=== PATIENT | female | born 1945 | race African-American/Black ===

== ENCOUNTER 2016-04-01 14:23 | Emergency (ER) | payer MEDICARE, MEDICAID ==
[~2016-04-01] VITALS: Ht 165.1 cm; Wt 63.5 kg
[~2016-04-01 14:23] MED LIST: ACETAMINOPHEN120 MG PO; AMLODIPINE BESY10 MG ORAL; CARVEDILOL3.125 MG ORAL; COZAAR50 MG ORAL; HYDRALAZINE HCL50 MG ORAL; KEPPRA500 M3 ORAL; LYRICA75 M1 ORAL; NORVASC5 MG ORAL; PHENYTOIN100 MG/4 M ORAL; UNOBMED
[2016-04-01 14:30] VITALS: BP 146/76
--- NOTE | 2016-04-01 14:50 | Emergency Room Report ---
History of Present Illness General Chief Complaint: Multiple Trauma/Fall Source: Patient Present Illness HPI Patient reports that she was outside of her nursing facility She states that she smokes And had gone outside with her walker And essentially slipped with a wet floor Denies any headache or visual changes denies any loss of consciousness Denies any chest pain or shortness of breath She reports that she had some increased low back pain However reports that her physician has told her that she has slipped discs The pain appears to be fairly similar to previous Denies any pelvic pain Denies any fevers or chills denies any focal weakness Allergies: Coded Allergies: NO KNOWN DRUG ALLERGIES (Unverified Allergy, Unknown, 02/04/14) Patient History Past Medical History: see triage record Pertinent Family History: none Reviewed Nursing Documentation: PMH: Agreed, PSxH: Agreed Nursing Documentation-PMH Hx Cardiac Problems: Yes - Cardiomyopathy Hx Hypertension: Yes Hx Cancer: No Hx Gastrointestinal Problems: No Hx Neurological Problems: Yes Hx Seizures: Yes Review of Systems All Other Systems: negative except mentioned in HPI Physical Exam Vital Signs Date Time Temp Pulse Resp B/P Pulse Ox O2 Delivery O2 Flow Rate FiO2 04/01/16 14:17 98.1 54 16 146/76 98 Room Air Sp02 EP Interpretation: reviewed, normal General Appearance: well appearing, no apparent distress Head: normocephalic, atraumatic Eyes: bilateral eye EOMI, bilateral eye PERRL ENT: hearing grossly normal, normal pharynx, TMs + canals normal, uvula midline Neck: full range of motion, supple, no meningismus, no bony tend Respiratory: lungs clear, normal breath sounds, no rhonchi, no respiratory distress, no retraction, no accessory muscle use Cardiovascular #1: normal peripheral pulses, regular rate, rhythm, no edema, no gallop, no JVD, no murmur Gastrointestinal: normal bowel sounds, non tender, soft, no mass, no organomegaly, non-distended, no guarding, no hernia, no pulsatile mass, no rebound Genitourinary: no CVA tenderness Musculoskeletal: other Neurologic: oriented x3, responsive, sensory intact Psychiatric: mood/affect normal Skin: normal color, no rash, warm/dry, palpation normal Lymphatic: normal inspection, no adenopathy Medical Decision Making Diagnostic Impression: Primary Impression: Contusion of hip Additional Impression: Back contusion ER Course Given the patient's presentation differentials were considered However the patient provides a very clear specific mechanical fall, slipping with her cane on the wet ground Imaging of the lower back was obtained there is no signs of any acute pathology patient remained hemodynamically stable and appropriate for close half-way followup CT/MRI/US Diagnostic Results CT/MRI/US Diagnostic Results : Impression CT L-spineImpression: No acute fracture identified. Moderate spondylosis with right convex scoliosis demonstrated. Osteopenia Extensive atherosclerotic vascular disease Possibility of nonobstructive nephrolithiasis not excluded. Extensive calcific granulomata within the spleen Last Vital Signs Date Time Temp Pulse Resp B/P Pulse Ox O2 Delivery O2 Flow Rate FiO2 04/01/16 14:30 98.1 16 146/76 98 Room Air 04/01/16 14:17 54 Status: improved Disposition: XFER SNF Condition: Improved Additional Instructions: Patient is provided with the discharge instructions notified to follow up with primary doctor in the next 2-3 days otherwise return to the er with any worsening symptoms. Please note that this report is being documented using [employer] technology. This can lead to erroneous entry secondary to incorrect interpretation by the dictating instrument. BRITTNEY PUCKETT D.O. Apr 01, 2016 14:50
--- NOTE | 2016-04-01 16:04 | Diagnostic Imaging Report ---
Indication: Back pain Technique: Continuous helical transaxial imaging of the lumbar spine was obtained from the lung bases to the pubic symphysis. No IV contrast was administered. Coronal 2-D reformats were also obtained. Study obtained in a Siemens sensation [address] Total Dose length Product (DLP): [address] Dose Index Volume (CTDIvol): 14 mGy Comparison: None Findings: There is no evidence of an acute fracture or malalignment. Vacuum phenomena, endplate and facet hypertrophy and spur formation noted at multiple levels. There is a scoliosis convex to the right. Generalized osteopenia noted. Extensive calcification of aorta demonstrated. Calcifications noted within the spleen. There are calcifications within both kidneys, only partially visualized on this examination. Some of these are undoubtedly vascular in nature. The possibility of nonobstructive stones are not excluded. There is no hydronephrosis demonstrated. Impression: No acute fracture identified. Moderate spondylosis with right convex scoliosis demonstrated. Osteopenia Extensive atherosclerotic vascular disease Possibility of nonobstructive nephrolithiasis not excluded. Extensive calcific granulomata within the spleen The CT scanner at [facility] is accredited by the [employer] and the scans are performed using protocols designed to limit radiation exposure to as low as reasonably achievable to attain images of sufficient resolution adequate for diagnostic evaluation.
[2016-04-01 16:29] VITALS: BP 168/82
--- NOTE | 2016-04-04 15:28 | Cardiology Report ---
APPROVED REPORT EKG Measurement Heart [id number] Sinus bradycardia Low voltage QRS T wave abnormality, consider lateral ischemia Abnormal ECG
== END 2016-04-01 16:51 ==
LOC: EDBD 14:23 → EMR 14:53
DX: S30.0XXA Contusion of lower back and pelvis, initial encounter (principal); S70.00XA Contusion of unspecified hip, initial encounter; W01.0XXA Fall on same level from slipping, tripping and stumbling without subsequent striking against object, initial encounter; Y92.129 Unspecified place in nursing home as the place of occurrence of the external cause; I10 Essential (primary) hypertension; I42.9 Cardiomyopathy, unspecified; M85.88 Other specified disorders of bone density and structure, other site; M47.896 Other spondylosis, lumbar region; M41.86 Other forms of scoliosis, lumbar region
CPT/HCPCS: 72131; 93005; 99284

== ENCOUNTER 2016-09-12 07:54 | Inpatient (IN) | payer MEDICARE, MEDICAID ==
[~2016-09-12] VITALS: Ht 160 cm; Wt 67.6 kg
[2016-09-12 08:31] VITALS: BP 205/93
[2016-09-12 08:55] LABS: BASOPHILS % (AUTO) 1.8 % (0.0-2.0); EOSINOPHILS % (AUTO) 0.5 % (0.0-3.0); LYMPHOCYTES % (AUTO) 40.5 % (20.0-45.0); MEAN CORPUSCULAR HEMOGLOBIN 30.2 PG (27.0-31.0); MEAN CORPUSCULAR VOLUME 94 FL (80-99); MEAN PLATELET VOLUME 14.3 FL (6.5-10.1); MONOCYTES % (AUTO) 10.2 % (1.0-10.0); PLATELET COUNT 148 K/UL (150-450); RED BLOOD COUNT 4.58 M/UL (4.20-5.40); WHITE BLOOD COUNT 10.5 K/UL (4.8-10.8)
[2016-09-12] MEDS ORDERED: REMERON15 MG ORAL (09:02)
[2016-09-12] MEDS ORDERED: LEXAPRO10 MG ORAL (09:02)
[2016-09-12] MEDS ORDERED: LORazepam Inj 2mg/ml 1ml ONE (10:13)
[2016-09-12] MEDS ORDERED: LORazepam Inj 2mg/ml 1ml IV ONE (10:15)
[2016-09-12 10:26] LABS: ACETAMINOPHEN < 10 ug/mL (10-30); ALANINE AMINOTRANSFERASE 68 U/L (3-33); ALCOHOL < 10 mg/dL; ANION GAP 14 (5-15); ASPARTATE AMINO TRANSFERASE 95 U/L (5-40); CALCIUM 10.1 mg/dL (8.6-10.2); CARBON DIOXIDE 22 mEQ/L (20-30); CHLORIDE 95 mEQ/L (98-107); CREATININE 1.1 mg/dL (0.5-0.9); GLOMERULAR FILTRATION RATE 59.5 mL/min (>60); HEMOLYSIS 1; SODIUM 131 mEQ/L (135-145); TOTAL PROTEIN 8.7 g/dL (6.6-8.7); TROPONIN I < 0.30 ng/mL (<=0.30)
--- NOTE | 2016-09-12 10:27 | Emergency Room Report ---
History of Present Illness General Chief Complaint: Seizure Source: Patient, EMS Present Illness HPI 71-year-old female presents to ED for evaluation. Per EMS patient resides in a rehabilitation care facility. Patient had a seizure today approximately 30 minutes prior to arrival. Upon arrival patient is post ictal. Does not remember what happened. Patient takes Dilantin for seizures. Possible alcohol use as per EMS. Patient can come and go from the facility at her own choosing. Denies chest pain or shortness of breath. No other aggravating or relieving factors. Denies any other associated symptoms Allergies: Coded Allergies: NO KNOWN DRUG ALLERGIES (Unverified Allergy, Unknown, 02/04/14) Patient History Past Medical History: HTN, seizures Past Surgical History: none Pertinent Family History: none Social History: Denies: alcohol use, drug use, smoking Now: No Immunizations: UTD Reviewed Nursing Documentation: PMH: Agreed, PSxH: Agreed Nursing Documentation-PMH Hx Cardiac Problems: Yes - Cardiomyopathy Hx Hypertension: Yes Hx Cancer: No Hx Gastrointestinal Problems: No Hx Neurological Problems: Yes Hx Seizures: Yes Review of Systems All Other Systems: negative except mentioned in HPI Physical Exam Vital Signs Date Time Temp Pulse Resp B/P Pulse Ox O2 Delivery O2 Flow Rate FiO2 09/12/16 07:57 98.4 120 20 160/74 97 09/12/16 08:31 Nasal Cannula 4.0 Sp02 EP Interpretation: reviewed, normal General Appearance: no apparent distress, alert, GCS 15, non-toxic Head: normocephalic, atraumatic Eyes: bilateral eye PERRL, bilateral eye normal inspection ENT: hearing grossly normal, normal pharynx, no angioedema, normal voice Neck: full range of motion, supple/symm/no masses Respiratory: chest non-tender, lungs clear, normal breath sounds, speaking full sentences Cardiovascular #1: regular rate, rhythm, no edema Cardiovascular #2: 2+ carotid (R), 2+ carotid (L), 2+ radial (R), 2+ radial (L) , 2+ dorsalis pedis (R), 2+ dorsalis pedis (L) Gastrointestinal: normal bowel sounds, non tender, soft, non-distended, no guarding, no rebound Rectal: deferred Genitourinary: normal inspection, no CVA tenderness Musculoskeletal: back normal, gait/station normal, normal range of motion, non- tender Neurologic: alert, oriented x3, responsive, motor strength/tone normal, sensory intact, speech normal Psychiatric: judgement/insight normal, memory normal, mood/affect normal, no suicidal/homicidal ideation Reflexes: 3+ bicep (R), 3+ bicep (L), 3+ tricep (R), 3+ tricep (L), 3+ knee (R) , 3+ knee (L) Skin: normal color, no rash, warm/dry, well hydrated Lymphatic: no adenopathy Medical Decision Making Diagnostic Impression: Primary Impression: Seizure disorder Additional Impression: Substance abuse ER Course Hospital Course 71-year-old F presents to ED status post seizure. Differential diagnosis includes- breakthrough seizure, alcohol abuse, noncompliance with medication Clinical course Patient placed on stretcher. Initial history and physical I ordered labs, IV fluids, CT brain Labs-electrolytes okay, leukocytosis noted, hemoglobin/hematocrit stable. dilantin level low, Utox + amphetamines, cocaine EKG - sinus tachycardia CT Brain ok Given loading dose of Dilantin. Given that patient is still altered I believe she should be admitted. Case discussed with Dr. Winchester and he agreed to accept the patient to his service for further care and support. i. I feel this is a highly complex case requiring extensive working including EKG/Rhythm strip, Xray/CT/US, Blood/urine lab work, repeat exams while in ED, and administration of strong opiates/narcotics for pain control, admission to hospital or close patient follow up. Diagnosis - seizure, substance abuse admitted to telemetry in serious condition Labs Test 09/12/16 08:20 09/12/16 09:50 White Blood Count 10.5 K/UL (4.8-10.8) Red Blood Count 4.58 M/UL (4.20-5.40) Hemoglobin 13.8 G/DL (12.0-16.0) Hematocrit 43.1 % (37.0-47.0) Mean Corpuscular Volume 94 FL (80-99) Mean Corpuscular Hemoglobin 30.2 PG (27.0-31.0) Mean Corpuscular Hemoglobin Concent 32.0 G/DL (32.0-36.0) Red Cell Distribution Width 12.0 % (11.6-14.8) Platelet Count 148 K/UL (150-450) Mean Platelet Volume 14.3 FL (6.5-10.1) Neutrophils (%) (Auto) 47.0 % (45.0-75.0) Lymphocytes (%) (Auto) 40.5 % (20.0-45.0) Monocytes (%) (Auto) 10.2 % (1.0-10.0) Eosinophils (%) (Auto) 0.5 % (0.0-3.0) Basophils (%) (Auto) 1.8 % (0.0-2.0) EKG Diagnostic Results Rate: tachycardiac Rhythm: NSR ST Segments: no acute changes ASA given to the pt in ED: No Rhythm Strip Diag. Results EP Interpretation: yes Rhythm: NSR, no PVC's, no ectopy CT/MRI/US Diagnostic Results CT/MRI/US Diagnostic Results : Imaging Test Ordered: CT Head Impression no acute process. old infarcts noted Last Vital Signs Date Time Temp Pulse Resp B/P Pulse Ox O2 Delivery O2 Flow Rate FiO2 09/12/16 08:31 98.4 111 20 205/93 97 Nasal Cannula 4.0 Status: improved Disposition: ADMITTED INPATIENT Condition: Serious Referrals: NON PHYSICIAN (PCP) NEIDA AREVALO M.D. Sep 12, 2016 10:27
[2016-09-12 10:36] LABS: CKMB 8.7 ng/mL (< 3.8)
[2016-09-12] MEDS ORDERED: Phenytoin 250mg/5ml vial ONE (10:38)
[2016-09-12] MEDS ORDERED: Phenytoin 1,000 MG in NS 275 ML IV ONE (10:45)
[2016-09-12 10:50] VITALS: BP 206/117
--- NOTE | 2016-09-12 10:52 | Diagnostic Imaging Report ---
Indication: Seizure Technique: Contiguous 5 mm thick transaxial imaging of the head obtained in a Siemens Sensation [address] scanner. Soft tissue and bone windows generated. Total Dose length Product (DLP): [address] Dose Index Volume (CTDIvol): 70.38 mGy Comparison: 02/03/16 Findings: There is encephalomalacia in the right posterior parietal region unchanged from the last exam and consistent with an old infarct. There is moderate prominence of the ventricles, basal cisterns, and cerebral sulci consistent with atrophy. Moderate, nonspecific, white matter hypoattenuation is noted throughout the brain consistent with chronic small vessel disease. Cystic foci noted within basal ganglia consistent with old lacunar infarcts. There is no midline shift, edema, acute hemorrhage, mass effect, or abnormal extra-axial fluid collections. There is indentation is noted involving the medial orbital pastor bilaterally consistent with old fractures. The paranasal sinuses and mastoids appear clear bilaterally. Impression: No acute intracranial bleed, mass effect or edema. 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 Moderate atrophy of the brain. Evidence of chronic small vessel disease involving white matter tracts including old lacunes. Old fractures involving the medial orbital wall bilaterally. No interval change The CT scanner at [facility] is accredited by the [employer] and the scans are performed using dose optimization techniques as appropriate to a performed exam including Automatic Exposure control.
[2016-09-12 11:04] LABS: APPEARANCE,URINE SLIGHTLY CLOUDY; KETONES,URINE NEGATIVE (NEGATIVE); LEUKOCYTE ESTERASE ,URINE NEGATIVE (NEGATIVE); NITRITE,URINE NEGATIVE (NEGATIVE); PH,URINE 6.5 (4.5-8.0); PROTEIN,URINE 3+ (NEGATIVE); UROBILINOGEN,URINE NORMAL MG/DL (0.0-1.0)
[2016-09-12 11:11] LABS: BACTERIA,URINE OCCASIONAL /HPF; SQUAMOUS EPITHELIAL CELL,UR OCCASIONAL /LPF (NONE/OCC); WBC,URINE 0-2 /HPF (0 - 2)
[2016-09-12 12:49] VITALS: BP 191/90
[2016-09-12] MEDS ORDERED: LORazepam Inj 2mg/ml 1ml IV PRN (15:15)
[2016-09-12] MEDS ORDERED: Milk of Magnesia 30ml Ud ORAL PRN (15:15)
[2016-09-12 15:30] VITALS: BP 176/89
[2016-09-12] MEDS ORDERED: Phenytoin Susp 100mg/4ml NG SCH (16:30)
[2016-09-12 16:52] VITALS: BP 154/83
[2016-09-12] MEDS: Lyrica 75mg cap ORAL SCH (18:00)
[2016-09-12 18:47] VITALS: BP 155/94
[2016-09-12] MEDS ORDERED: Nuedexta Capsule 20/10mg ORAL SCH (21:00)
[2016-09-12] MEDS: Phenytoin Susp 100mg/4ml ORAL SCH (21:29)
[2016-09-12] MEDS: HydrALAZINE 50mg tab ORAL SCH (21:37)
[2016-09-13] VITALS (7 sets, daily range): BP systolic 108–156; BP diastolic 53–88
--- NOTE | 2016-09-13 03:45 | History and Physical Report ---
DATE OF ADMISSION: 09/12/2016 CHIEF COMPLAINT AND REASON FOR HOSPITALIZATION: The patient admitted with seizure and an abnormal drug screen. HISTORY OF PRESENT ILLNESS: The patient is a resident of assisted living facility. She has a history of seizure disorder, for which she takes Dilantin. She apparently was out of the facility all day yesterday and did not come back to the late at night and did not take her medications. This morning, she apparently was altered and came to the hospital. In the emergency room, she had a witnessed seizure and was given Ativan. She is a poor historian and at this time she cannot give an adequate history. History is taken from my notes. There is a history of hypertension, gait disorder, for which she has used a walker, chronic low back pain, and possible discogenic disease. PAST SURGICAL HISTORY: None. MEDICATIONS: Prior to admission medications include Norvasc, Lexapro, lidocaine ointment, Remeron, Dilantin, Coreg, Lyrica, Nuedexta, Apresoline, and Tylenol. ALLERGIES: None. HABITS: She is a smoker of cigarettes. She has a positive drug screen. SOCIAL HISTORY: She had two children, one of AIDS and one of an auto accident. SYSTEM REVIEW: HEAD, EYES, EARS, NOSE, AND THROAT: Vision and hearing is good. ENDOCRINE: No diabetes or thyroid disease. PULMONARY: She has dyspnea on exertion. No TB. CARDIAC: History of hypertension and possible CHF. GASTROINTESTINAL: History of some constipation intermittently. No nausea or vomiting. GENITOURINARY: She is incontinent of urine. NEUROLOGIC: History of seizures. No definite stroke that she can tell us. PHYSICAL EXAMINATION: GENERAL: The patient is lying in bed. She is responsive, but somewhat sleepy and confused. VITAL SIGNS: From the computer, temperature is 98.4, pulse 104, respirations 20, and blood pressure 163/81. HEAD, EYES, EARS, NOSE, AND THROAT: Sclerae are nonicteric. Ocular motions intact in all directions. She is edentulous. NECK: No adenopathy. LUNGS: Clear. HEART: Regular rate and rhythm. No murmur. ABDOMEN: Soft without organomegaly or masses. EXTREMITIES: No edema, cyanosis, or clubbing. There are degenerative changes in the knees and arms. NEUROLOGIC: She is alert. Ocular motions intact in all directions, but when I held four fingers in front of her, she says there is one. She is disoriented. There is a suggestion of a right facial droop. She moves all extremities equally. Plantars are equivocal. IMPRESSION: 1. Status post seizure and postictal status. 2. Status post sedation with Ativan for seizures, unable to manage. 3. Positive drug screen for amphetamines and cocaine. 4. History of psychiatric problems. 5. History of hypertension. 6. History of osteoarthritis. PLAN: The patient will be observed with Dilantin. Dose adjusted per her levels in the blood, which were low on admission. The patient will be observed for neurologic status and ability to ambulate and return to her prior facility. Kilo Winchester M.D. DR: RADHA JOB#: [id number] CC:
[2016-09-13] MEDS: Phenytoin Susp 100mg/4ml ORAL SCH (09:35)
[2016-09-13] MEDS: HydrALAZINE 50mg tab ORAL SCH ×2 (09:36→13:24)
[2016-09-13] MEDS: Lyrica 75mg cap ORAL SCH (09:38)
[2016-09-13] MEDS ORDERED: Nuedexta Capsule 20/10mg ORAL SCH (11:00)
[2016-09-13 13:25] LABS: BASOPHILS % (AUTO) 0.9 % (0.0-2.0); EOSINOPHILS % (AUTO) 1.1 % (0.0-3.0); LYMPHOCYTES % (AUTO) 40.8 % (20.0-45.0); MEAN CORPUSCULAR HGB CONC 31.7 G/DL (32.0-36.0); MEAN CORPUSCULAR VOLUME 91 FL (80-99); MEAN PLATELET VOLUME 13.3 FL (6.5-10.1); MONOCYTES % (AUTO) 13.7 % (1.0-10.0); NEUTROPHILS % (AUTO) 43.6 % (45.0-75.0); PLATELET COUNT 128 K/UL (150-450); RED BLOOD COUNT 4.66 M/UL (4.20-5.40); RED CELL DISTRIBUTION WIDTH 11.3 % (11.6-14.8); WHITE BLOOD COUNT 6.3 K/UL (4.8-10.8)
--- NOTE | 2016-09-13 13:25 | General Progress Note ---
Assessment/Plan Problem List: (1) Methamphetamine abuse ICD Codes: F15.10 - Other stimulant abuse, uncomplicated SNOMED: 264013903 (2) Cocaine abuse ICD Codes: F14.10 - Cocaine abuse, uncomplicated SNOMED: 38993768, 310060856 (3) Lethargy ICD Codes: R53.83 - Other fatigue SNOMED: 727801573 (4) Seizure ICD Codes: R56.9 - Seizure SNOMED: 76153511 (5) Hypertension ICD Codes: I10 - Hypertension SNOMED: 13255391 (6) H/O: stroke with residual effects ICD Codes: I69.30 - H/O: stroke with residual effects SNOMED: 150461334 Assessment/Plan still lethargic and not safe for dc, monitor dph levels, mobilize Subjective HEENT: Reports: no symptoms Cardiovascular: Reports: no symptoms Respiratory: Reports: no symptoms Gastrointestinal/Abdominal: Reports: no symptoms Genitourinary: Reports: no symptoms Neurologic/Psychiatric: Reports: pre-existing deficit, seizure Endocrine: Reports: no symptoms Hematologic/Lymphatic: Reports: no symptoms Allergies: Coded Allergies: NO KNOWN DRUG ALLERGIES (Unverified Allergy, Unknown, 02/04/14) Objective Last 24 Hour Vital Signs Date Time Temp Pulse Resp B/P Pulse Ox O2 Delivery O2 Flow Rate FiO2 09/13/16 09:36 156/88 09/13/16 09:36 85 156/88 09/13/16 09:36 85 156/88 09/13/16 08:00 97.2 85 19 156/88 97 Room Air 09/13/16 04:00 78 09/13/16 03:54 97.5 81 18 142/78 100 Room Air 09/13/16 02:32 81 09/13/16 00:04 97.9 90 18 135/70 99 Room Air 09/12/16 21:37 132/80 09/12/16 21:37 99 132/80 09/12/16 18:59 99.1 09/12/16 18:47 99.1 106 20 155/94 96 Nasal Cannula 2.0 09/12/16 18:17 98.4 104 20 153/81 99 Nasal Cannula 2.0 09/12/16 16:52 107 20 154/83 99 Nasal Cannula 2.0 09/12/16 15:30 109 20 176/89 100 Nasal Cannula 4.0 Intake and Output 09/12/16 09/13/16 19:00 07:00 Intake Total 295 ml Output Total 1620 ml 900 ml Balance -1325 ml -900 ml Intake Oral 0 ml IV Total 295 ml Output Urine Total 1620 ml 900 ml # Voids 2 # Bowel Movements 1 Laboratory Tests 09/13/16 13:10: White Blood Count [Pending], Red Blood Count [Pending], Hemoglobin [Pending], Hematocrit [Pending], Mean Corpuscular Volume [Pending], Mean Corpuscular Hemoglobin [Pending], Mean Corpuscular Hemoglobin Concent [Pending], Red Cell Distribution Width [Pending], Platelet Count [Pending], Mean Platelet Volume [ Pending], Neutrophils (%) (Auto) [Pending], Lymphocytes (%) (Auto) [Pending], Monocytes (%) (Auto) [Pending], Eosinophils (%) (Auto) [Pending], Basophils (%) (Auto) [Pending], Sodium Level [Pending], Potassium Level [Pending], Chloride Level [Pending], Carbon Dioxide Level [Pending], Blood Urea Nitrogen [Pending], Creatinine [Pending], Estimat Glomerular Filtration Rate [Pending], Glucose Level [Pending], Calcium Level [Pending], Total Bilirubin [Pending], Aspartate Amino Transf (AST/SGOT) [Pending], Alanine Aminotransferase (ALT/SGPT) [Pending] , Alkaline Phosphatase [Pending], Total Protein [Pending], Albumin [Pending], Globulin [Pending], Phenytoin (Dilantin) Level [Pending] Height (Feet): 5 Height (Inches): 3.00 Weight (Pounds): 149 General Appearance: no apparent distress, lethargic EENT: normal ENT inspection Neck: normal alignment Cardiovascular: normal rate Respiratory/Chest: lungs clear, normal breath sounds Abdomen: non tender, soft Edema: no edema noted Arm (L), no edema noted Arm (R), no edema noted Leg (L), no edema noted Leg (R), no edema noted Pedal (L), no edema noted Pedal (R), no edema noted Generalized Neurologic: review coordinator II-XII grossly normal, disoriented TERRANCE MEEKS Sep 13, 2016 13:25
[2016-09-13 13:42] LABS: CALCIUM 9.1 mg/dL (8.6-10.2); CREATININE 1.1 mg/dL (0.5-0.9); GLOMERULAR FILTRATION RATE 59.5 mL/min (>60); POTASSIUM 3.1 mEQ/L (3.4-4.9); TOTAL PROTEIN 7.6 g/dL (6.6-8.7)
[2016-09-13] MEDS ORDERED: LORazepam Inj 2mg/ml 1ml IV PRN (17:00)
[2016-09-13] MEDS ORDERED: HydrALAZINE 50mg tab ORAL SCH (18:00)
[2016-09-13] MEDS ORDERED: Lyrica 50mg cap ORAL SCH (18:00)
[2016-09-13] MEDS: Lyrica 50mg cap ORAL SCH (19:03)
[2016-09-13] MEDS: Phenytoin 100mg cap ORAL SCH (20:58)
[2016-09-13] MEDS ORDERED: Phenytoin 100mg cap ORAL SCH (21:00)
[2016-09-13] MEDS: Nuedexta Capsule 20/10mg ORAL SCH (23:19)
[2016-09-14] VITALS: BP 124/76
[2016-09-14 03:59] VITALS: BP 144/88
[2016-09-14 08:42] VITALS: BP 130/61
[2016-09-14] MEDS: HydrALAZINE 50mg tab ORAL SCH ×3 (09:00→17:33)
[2016-09-14 09:17] LABS: CALCIUM 9.5 mg/dL (8.6-10.2); CREATININE 1.1 mg/dL (0.5-0.9); GLOMERULAR FILTRATION RATE 59.5 mL/min (>60); POTASSIUM 3.9 mEQ/L (3.4-4.9)
[2016-09-14] MEDS: Lyrica 50mg cap ORAL SCH ×2 (09:32→17:34)
[2016-09-14] MEDS: Phenytoin Susp 100mg/4ml ORAL SCH (09:35)
[2016-09-14] MEDS: Nuedexta Capsule 20/10mg ORAL SCH ×2 (09:35→20:17)
--- NOTE | 2016-09-14 12:31 | General Progress Note ---
Assessment/Plan Problem List: (1) Methamphetamine abuse ICD Codes: F15.10 - Other stimulant abuse, uncomplicated SNOMED: 462187244 (2) Cocaine abuse ICD Codes: F14.10 - Cocaine abuse, uncomplicated SNOMED: 47285149, 520150792 (3) Lethargy ICD Codes: R53.83 - Other fatigue SNOMED: 441336107 (4) Seizure ICD Codes: R56.9 - Seizure SNOMED: 86440401 (5) Hypertension ICD Codes: I10 - Hypertension SNOMED: 62703971 (6) H/O: stroke with residual effects ICD Codes: I69.30 - H/O: stroke with residual effects SNOMED: 247083306 (7) Gait abnormality ICD Codes: R26.9 - Unspecified abnormalities of gait and mobility SNOMED: 75211160 Assessment/Plan still unsteady gait and not safe for dc, monitor dph levels, mobilize Subjective Constitutional: Reports: weakness HEENT: Reports: no symptoms Cardiovascular: Reports: no symptoms Respiratory: Reports: no symptoms Gastrointestinal/Abdominal: Reports: no symptoms Genitourinary: Reports: incontinence Neurologic/Psychiatric: Reports: no symptoms, pre-existing deficit, weakness Hematologic/Lymphatic: Reports: no symptoms Allergies: Coded Allergies: NO KNOWN DRUG ALLERGIES (Unverified Allergy, Unknown, 02/04/14) Objective Last 24 Hour Vital Signs Date Time Temp Pulse Resp B/P Pulse Ox O2 Delivery O2 Flow Rate FiO2 09/14/16 09:33 71 130/61 09/14/16 09:00 130/61 09/14/16 09:00 71 130/61 09/14/16 08:42 97.9 71 18 130/61 98 Room Air 09/14/16 03:59 97.9 72 18 144/88 100 Room Air 09/14/16 00:00 98.9 87 18 124/76 96 Room Air 09/13/16 20:00 98.4 90 18 130/75 93 Room Air 09/13/16 18:45 93 117/59 09/13/16 16:00 98.2 85 16 108/53 96 Room Air 09/13/16 13:24 132/58 Intake and Output 09/13/16 09/14/16 19:00 07:00 Intake Total 550 ml 360 ml Balance 550 ml 360 ml Intake Oral 550 ml 360 ml # Voids 1 3 # Bowel Movements 2 Laboratory Tests 09/13/16 13:10: White Blood Count 6.3, Red Blood Count 4.66, Hemoglobin 13.5, Hematocrit 42.6, Mean Corpuscular Volume 91, Mean Corpuscular Hemoglobin 29.0, Mean Corpuscular Hemoglobin Concent 31.7L, Red Cell Distribution Width 11.3L, Platelet Count 128L , Mean Platelet Volume 13.3H, Neutrophils (%) (Auto) 43.6L, Lymphocytes (%) ( Auto) 40.8, Monocytes (%) (Auto) 13.7H, Eosinophils (%) (Auto) 1.1, Basophils (% ) (Auto) 0.9, Sodium Level 135, Potassium Level 3.1L, Chloride Level 100, Carbon Dioxide Level 25, Anion Gap 10, Blood Urea Nitrogen 20, Creatinine 1.1H, Estimat Glomerular Filtration Rate 59.5, Glucose Level 132H, Calcium Level 9.1, Total Bilirubin 0.9, Aspartate Amino Transf (AST/SGOT) 78H, Alanine Aminotransferase (ALT/SGPT) 51H, Alkaline Phosphatase 72, Total Protein 7.6, Albumin 3.8, Globulin 3.8, Albumin/Globulin Ratio 1.0, Phenytoin (Dilantin) Level 14.0 09/14/16 07:07: Sodium Level 140, Potassium Level 3.9, Chloride Level 107, Carbon Dioxide Level 24, Anion Gap 9, Blood Urea Nitrogen 22, Creatinine 1.1H, Estimat Glomerular Filtration Rate 59.5, Glucose Level 107H, Calcium Level 9.5, Phenytoin (Dilantin ) Level 13.7 Height (Feet): 5 Height (Inches): 3.00 Weight (Pounds): 149 General Appearance: no apparent distress, confused EENT: normal ENT inspection Neck: normal alignment Cardiovascular: normal rate Respiratory/Chest: lungs clear Extremities: other - djd knees Edema: no edema noted Arm (L), no edema noted Arm (R), no edema noted Leg (L), no edema noted Leg (R), no edema noted Pedal (L), no edema noted Pedal (R), no edema noted Generalized Neurologic: certified lactation counselor II-XII grossly normal Objective unstable gait tendency to fall TERRANCE MEEKS Sep 14, 2016 12:31
[2016-09-14 12:33] VITALS: BP 141/75
[2016-09-14] MEDS ORDERED: Milk of Magnesia 30ml Ud ORAL PRN (15:15)
[2016-09-14 16:18] VITALS: BP 142/76
[2016-09-14 20:00] VITALS: BP 138/76
[2016-09-14] MEDS: Phenytoin 100mg cap ORAL SCH (20:18)
[2016-09-14] MEDS ORDERED: 1/2 NS 1000ml IV ONE (21:02)
[2016-09-15] VITALS: BP 114/58
[2016-09-15 04:00] VITALS: BP 148/62
[2016-09-15 08:00] VITALS: BP 144/57
[2016-09-15] MEDS: Phenytoin Susp 100mg/4ml ORAL SCH (08:47)
[2016-09-15] MEDS: Nuedexta Capsule 20/10mg ORAL SCH ×2 (08:47→20:17)
[2016-09-15] MEDS: HydrALAZINE 50mg tab ORAL SCH ×3 (08:48→17:06)
[2016-09-15] MEDS: Lyrica 50mg cap ORAL SCH ×2 (08:48→17:06)
[2016-09-15 11:07] VITALS: BP 146/78
--- NOTE | 2016-09-15 12:25 | General Progress Note ---
Assessment/Plan Problem List: (1) Methamphetamine abuse ICD Codes: F15.10 - Other stimulant abuse, uncomplicated SNOMED: 355120677 (2) Cocaine abuse ICD Codes: F14.10 - Cocaine abuse, uncomplicated SNOMED: 18309218, 839427017 (3) Lethargy ICD Codes: R53.83 - Other fatigue SNOMED: 807037822 (4) Seizure ICD Codes: R56.9 - Seizure SNOMED: 64866306 (5) Hypertension ICD Codes: I10 - Hypertension SNOMED: 02305992 (6) H/O: stroke with residual effects ICD Codes: I69.30 - H/O: stroke with residual effects SNOMED: 640644619 (7) Gait abnormality ICD Codes: R26.9 - Unspecified abnormalities of gait and mobility SNOMED: 37349190 Assessment/Plan still unsteady gait and not safe for dc, monitor dph levels, mobilize Subjective Constitutional: Reports: weakness HEENT: Reports: no symptoms Cardiovascular: Reports: no symptoms Respiratory: Reports: no symptoms Gastrointestinal/Abdominal: Reports: no symptoms Genitourinary: Reports: incontinence Neurologic/Psychiatric: Reports: pre-existing deficit Endocrine: Reports: no symptoms Allergies: Coded Allergies: NO KNOWN DRUG ALLERGIES (Unverified Allergy, Unknown, 02/04/14) Objective Last 24 Hour Vital Signs Date Time Temp Pulse Resp B/P Pulse Ox O2 Delivery O2 Flow Rate FiO2 09/15/16 11:07 97.7 79 20 146/78 99 Room Air 09/15/16 08:48 144/57 09/15/16 08:48 79 144/57 09/15/16 08:40 79 144/57 09/15/16 08:00 97.7 79 20 144/57 97 Room Air 09/15/16 04:00 98.0 70 20 148/62 96 Room Air 09/15/16 00:00 97.7 78 20 114/58 96 Room Air 09/14/16 20:00 98.2 97 20 138/76 Room Air 09/14/16 17:34 82 142/76 09/14/16 17:33 142/76 09/14/16 16:18 97.5 82 18 142/76 93 Room Air 09/14/16 13:24 141/75 09/14/16 12:33 97.1 86 19 141/75 99 Room Air Intake and Output 09/14/16 09/15/16 19:00 07:00 Intake Total 200 ml Balance 200 ml Intake Oral 200 ml # Voids 5 # Bowel Movements 1 Height (Feet): 5 Height (Inches): 3.00 Weight (Pounds): 149 General Appearance: no apparent distress, alert EENT: normal ENT inspection Neck: normal alignment Cardiovascular: normal rate Respiratory/Chest: lungs clear Abdomen: non tender Edema: no edema noted Arm (L), no edema noted Arm (R), no edema noted Leg (L), no edema noted Leg (R), no edema noted Pedal (L), no edema noted Pedal (R), no edema noted Generalized Neurologic: uptwist spinner II-XII grossly normal, other - inattentive and unsteady gait Objective unstable gait tendency to fall TERRANCE MEEKS Sep 15, 2016 12:25
[2016-09-15 16:00] VITALS: BP 156/99
--- NOTE | 2016-09-15 16:26 | Cardiology Report ---
APPROVED REPORT EKG Measurement Heart [id number] QT0T0 QTc0 No QRS complexes found, no ECG analysis possible
[2016-09-15] MEDS ORDERED: guaiFENesin 100mg/5ml Liq ud ORAL PRN (17:30)
[2016-09-15 20:00] VITALS: BP 152/80
[2016-09-15] MEDS: Phenytoin 100mg cap ORAL SCH (20:18)
[2016-09-16] VITALS: BP 147/77
[2016-09-16 04:02] VITALS: BP 140/66
[2016-09-16 08:49] VITALS: BP 159/87
[2016-09-16] MEDS: HydrALAZINE 50mg tab ORAL SCH ×3 (09:05→18:00)
[2016-09-16] MEDS: Nuedexta Capsule 20/10mg ORAL SCH (09:05)
[2016-09-16] MEDS: Lyrica 50mg cap ORAL SCH ×2 (09:06→18:16)
[2016-09-16] MEDS: Phenytoin Susp 100mg/4ml ORAL SCH (09:09)
[2016-09-16 12:43] VITALS: BP 158/104
[2016-09-16 16:12] VITALS: BP 106/57
[2016-09-16 18:00] VITALS: BP 106/57
--- NOTE | 2016-09-17 | Discharge Summary ---
DATE OF ADMISSION: 09/12/2016 DATE OF DISCHARGE: 09/16/2016 PERTINENT HISTORY: The patient admitted to the hospital with seizure and abnormal drug screen. She apparently missed her medications for one day and was out of her facility and came in with seizures and had another seizure witnessed in the emergency room. PERTINENT PHYSICAL FINDINGS: See my dictation. On my first exam seeing her she was somewhat sleepy and confused. HEAD, EYES, EARS, NOSE, AND THROAT: She is edentulous. Sclerae nonicteric. LUNGS: Clear. HEART: Regular rhythm. ABDOMEN: Soft. No organomegaly. EXTREMITIES: No edema. NEUROLOGIC: She is arousable, alert, but somewhat confused and disoriented. This is suggestive of a right facial droop. She moves all extremities equally. COURSE IN THE HOSPITAL: The patient was found to have a low Dilantin level and a toxic screen positive for amphetamines and cocaine. This was addressed with the patient. The Dilantin was repeated and re-dosed and the levels normalized and she had no more seizures. However, she was very weak and despite physical therapy she was unable to walk safely. She was unable to return to assisted living facility. She was at risk of falling. The patient was informed of this and arranged and made for her to go to a intermediate facility for rehabilitation. FINAL DIAGNOSES: 1. Seizure disorder with breakthrough seizure due to missing doses of Dilantin. 2. History of prior cerebrovascular accident. 3. Gait disorder. 4. Positive drug screen for amphetamines and cocaine. 5. Hypertensive heart disease. 6. Chronic obstructive pulmonary disease. DISCHARGE DISPOSITION: To the [facility] with a mechanical soft diet. DISCHARGE MEDICATIONS: Per the discharge medication list. FOLLOWUP: Follow up by Dr. Winchester in the facility. Kilo Winchester M.D. DR: CHRIS JOB#: [id number] CC:
== END 2016-09-16 19:00 | DRG 101 ==
LOC: EDBD 07:54 → EMR 08:29 → INTOOBSV 13:20 → 2E 13:20 → UNDOADMOB 13:20 → EDBEDREQ 14:37 → 2E 15:09 → OBSVTOIN 15:09 → INTOOBSV 15:09 → EDBEDREQ 16:47 → 2E 09-13 09:20 → OBSVTOIN 09-13 13:35 → 4W 09-13 15:56
DX: G40.909 Epilepsy, unspecified, not intractable, without status epilepticus (principal); J44.9 Chronic obstructive pulmonary disease, unspecified; I11.9 Hypertensive heart disease without heart failure; F15.10 Other stimulant abuse, uncomplicated; F14.10 Cocaine abuse, uncomplicated; Z91.14 Patient's other noncompliance with medication regimen; R26.9 Unspecified abnormalities of gait and mobility; R53.83 Other fatigue; I69.30 Unspecified sequelae of cerebral infarction; F17.200 Nicotine dependence, unspecified, uncomplicated
CPT/HCPCS: 36415; 70450; 80048; 80053; 80185; 80300; 80329; 81003; 82550; 82553; 84484; 85025; 87081; 93005; J1165; J8499

== ENCOUNTER 2018-03-29 17:59 | Emergency (ER) | payer MEDICARE, MEDICAID ==
[~2018-03-29] VITALS: Ht 165.1 cm; Wt 63.5 kg
[~2018-03-29 17:59] MED LIST changes: +LEXAPRO10 MG ORAL; +REMERON15 MG ORAL
[2018-03-29 18:02] VITALS: BP 190/85
[2018-03-29] MEDS ORDERED: ASPIRIN-LOW81 MG ORAL (18:03)
[2018-03-29] MEDS ORDERED: ZOFRAN4 M1 ORAL (18:03)
[2018-03-29] MEDS ORDERED: DILANTIN50 MG ORAL (18:03)
--- NOTE | 2018-03-29 18:05 | NUR ---
ED Nurse Note: Patient biba c/o of left lower abdomen pain. at time of arrival patient rates her pain a 8/10 pain. that started yesterday patient is alert and oriented x4, ambulatory with a steady gait, VSS
--- NOTE | 2018-03-29 18:12 | Emergency Room Report ---
History of Present Illness General Chief Complaint: General Complaint Source: Patient, EMS Present Illness HPI Patient presents with one week of left-sided flank pain. She denies any trauma or twisting her back. She feels like some he's kicked her there. She took Tylenol earlier today. The pain right now is 7/10 and constant. It doesn't radiate to her groin. She denies any fevers or chills. She claims never to of had pain like this in the past. She has any renal stones or dysuria. The patient has a history of seizures. She denies having a recent seizure. She was seen in the past with a back contusion. No chest pain, NVD, dysuria, joint pain, headache, depression, rashes. Allergies: Coded Allergies: NO KNOWN DRUG ALLERGIES (Unverified Allergy, Unknown, 02/04/14) Patient History Past Medical History: see triage record Social History: Reports: smoking, drug use - cocaine and methamphetamine in past Social History Narrative country [place] Reviewed Nursing Documentation: PMH: Agreed; PSxH: Agreed Nursing Documentation-PMH Hx Cardiac Problems: Yes Hx Hypertension: Yes Hx Cancer: No Hx Gastrointestinal Problems: No Hx Neurological Problems: Yes Hx Seizures: Yes Review of Systems All Other Systems: negative except mentioned in HPI Physical Exam Vital Signs Date Time Temp Pulse Resp B/P (MAP) Pulse Ox O2 Delivery O2 Flow Rate FiO2 03/29/18 17:52 98.2 90 19 190/85 100 Room Air Sp02 EP Interpretation: reviewed, normal General Appearance: well appearing, no apparent distress, GCS 15 Head: normocephalic, atraumatic Eyes: bilateral eye normal inspection, bilateral eye PERRL ENT: moist mucus membranes Neck: supple Respiratory: lungs clear, normal breath sounds Cardiovascular #1: regular rate, rhythm Cardiovascular #2: 2+ radial (R) Gastrointestinal: normal inspection, normal bowel sounds, non tender, no mass, non-distended Genitourinary: CVA tenderness (L) Musculoskeletal: digits/nails normal, gait/station normal, normal range of motion, no calf tenderness, tender - L lumbar area - paraspinous area/CVA area Neurologic: alert, oriented x3, motor strength/tone normal, DTRs symmetric, sensory intact, cerebellar normal, normal gait, speech normal Psychiatric: mood/affect normal Skin: normal inspection, warm/dry Medical Decision Making Diagnostic Impression: Primary Impression: Flank pain ER Course Patient presents with left flank pain. Differential includes renal stone, pyonephritis, muscle strain, diverticulitis, unrecognized seizure amongst others. Evaluation will be with CT abdomen and pelvis and labs. The patient will be treated with IV hydration and analgesia. Labs with normal WBC. CMP normal. Min elevated calcium. UA clear. Dilantin 7.1. CT as below. Improved with treatment. No medical or surgical emergency. Patient stable for outpatient observation and treatment. Laboratory Tests Test 03/29/18 19:00 White Blood Count 7.2 K/UL (4.8-10.8) Red Blood Count 4.17 M/UL (4.20-5.40) L Hemoglobin 12.0 G/DL (12.0-16.0) Hematocrit 36.3 % (37.0-47.0) L Mean Corpuscular Volume 87 FL (80-99) Mean Corpuscular Hemoglobin 28.7 PG (27.0-31.0) Mean Corpuscular Hemoglobin Concent 33.0 G/DL (32.0-36.0) Red Cell Distribution Width 12.6 % (11.6-14.8) Platelet Count 191 K/UL (150-450) Mean Platelet Volume 9.4 FL (6.5-10.1) Neutrophils (%) (Auto) % (45.0-75.0) Lymphocytes (%) (Auto) % (20.0-45.0) Monocytes (%) (Auto) % (1.0-10.0) Eosinophils (%) (Auto) % (0.0-3.0) Basophils (%) (Auto) % (0.0-2.0) Prothrombin Time 10.7 SEC (9.30-11.50) Prothrombin Time INR 1.0 (0.9-1.1) PTT 26 SEC (23-33) Urine Color Yellow Urine Appearance Slightly cloudy Urine pH 5 (4.5-8.0) Urine Specific [place] 1.020 (1.005-1.035) Urine Protein 1+ (NEGATIVE) H Urine Glucose (UA) Negative (NEGATIVE) Urine Ketones Negative (NEGATIVE) Urine Blood Negative (NEGATIVE) Urine Nitrite Negative (NEGATIVE) Urine Bilirubin Negative (NEGATIVE) Urine Urobilinogen Normal MG/DL (0.0-1.0) Urine Leukocyte Esterase Negative (NEGATIVE) Urine RBC 0 /HPF (0 - 2) Urine WBC 0-2 /HPF (0 - 2) Urine Squamous Epithelial Cells Many /LPF (NONE/OCC) H Urine Bacteria Few /HPF (NONE) Urine Mucus Few /LPF (NONE/OCC) H Sodium Level 139 MMOL/L (136-145) Potassium Level 3.9 MMOL/L (3.5-5.1) Chloride Level 105 MMOL/L (98-107) Carbon Dioxide Level 22 MMOL/L (21-32) Anion Gap 12 mmol/L (5-15) Blood Urea Nitrogen 15 mg/dL (7-18) Creatinine 1.1 MG/DL (0.55-1.30) Estimate Glomerular Filtration Rate mL/min (>60) Glucose Level 103 MG/DL (74-106) Calcium Level 10.2 MG/DL (8.5-10.1) H Total Bilirubin 0.4 MG/DL (0.2-1.0) Aspartate Amino Transferase (AST) 28 U/L (15-37) Alanine Aminotransferase (ALT) 34 U/L (12-78) Alkaline Phosphatase 70 U/L (46-116) Total Protein 8.2 G/DL (6.4-8.2) Albumin 3.7 G/DL (3.4-5.0) Globulin 4.5 g/dL Albumin/Globulin Ratio 0.8 (1.0-2.7) L Lipase 236 U/L (73-393) Phenytoin (Dilantin) Level 7.1 ug/mL (10-20) L CT/MRI/US Diagnostic Results CT/MRI/US Diagnostic Results : Imaging Test Ordered: abd/pelvis Impression no sig pathology Umbilical hernia Hiatal hernia Renal cysts and calcifications (scarring) Pancreatic duct 3 mm. Diverticulosis Distal aorta 2.4 cm. Last Vital Signs Date Time Temp Pulse Resp B/P (MAP) Pulse Ox O2 Delivery O2 Flow Rate FiO2 03/29/18 22:20 98.4 88 14 154/92 100 Room Air Status: improved Disposition: ASSISTED LIVING Condition: Improved Scripts Methocarbamol* (ROBAXIN*) 500 Mg Tablet 500 MG PO TID, #10 TAB 0 Refills Prov: Pal Gleason MD 03/29/18 Ibuprofen* (MOTRIN*) 600 Mg Tablet 600 MG ORAL Q6H PRN for For Pain, #20 TAB Prov: Pal Gleason MD 03/29/18 Pal Gleason MD Mar 29, 2018 18:12
[2018-03-29] MEDS ORDERED: Isovue-300 100ml vial INJ PRN (18:15)
[2018-03-29] MEDS ORDERED: Morphine Sulfate 4mg/ml Inj (IV USE ONLY) IVP ONE ×2 (18:15→21:15)
[2018-03-29 19:17] LABS: APPEARANCE,URINE SLIGHTLY CLOUDY; BILIRUBIN, URINE NEGATIVE (NEGATIVE); GLUCOSE, URINE (UA) NEGATIVE (NEGATIVE); KETONES,URINE NEGATIVE (NEGATIVE); LEUKOCYTE ESTERASE ,URINE NEGATIVE (NEGATIVE); NITRITE,URINE NEGATIVE (NEGATIVE); PH,URINE 5 (4.5-8.0); PROTEIN,URINE 1+ (NEGATIVE); UROBILINOGEN,URINE NORMAL MG/DL (0.0-1.0)
[2018-03-29 19:19] LABS: COLOR,URINE YELLOW
[2018-03-29 19:21] LABS: HEMATOCRIT 36.3 % (37.0-47.0); MEAN CORPUSCULAR VOLUME 87 FL (80-99); PLATELET COUNT 191 K/UL (150-450); RED BLOOD COUNT 4.17 M/UL (4.20-5.40); RED CELL DISTRIBUTION WIDTH 12.6 % (11.6-14.8); WHITE BLOOD COUNT 7.2 K/UL (4.8-10.8)
[2018-03-29 19:30] VITALS: BP 161/92
--- NOTE | 2018-03-29 19:35 | NUR ---
ED Nurse Note: RECIEVED REPORT FROM HERNANDEZ ALVAREZ TO [facility]ME [facility], PT IN BED AWAKE AND ALERT, RECENLY MEDICATED FOR PAIN, PT IS ON CARDIAC MONITORING, HAS PATENT SALINE LOCK INR RIGHT WRIST, FLUIDS INFUSING, TOLERATING WELL, PT RATES PAINA T 7/10 BEFORE MEDS, NO CP, NO SOB, WILL RESUME CARE ORDERED AND CONTINUE TO CLOSELY MONITOR.
[2018-03-29 19:36] LABS: ANION GAP 12 mmol/L (5-15); BLOOD UREA NITROGEN 15 mg/dL (7-18); CALCIUM 10.2 MG/DL (8.5-10.1); CARBON DIOXIDE 22 MMOL/L (21-32); CHLORIDE 105 MMOL/L (98-107); CREATININE 1.1 MG/DL (0.55-1.30); POTASSIUM 3.9 MMOL/L (3.5-5.1); SODIUM 139 MMOL/L (136-145)
[2018-03-29 19:44] LABS: ALANINE AMINOTRANSFERASE 34 U/L (12-78); ALBUMIN 3.7 G/DL (3.4-5.0); ALBUMIN/GLOBULIN RATIO 0.8 (1.0-2.7); ALKALINE PHOSPHATASE 70 U/L (46-116); ASPARTATE AMINO TRANSFERASE 28 U/L (15-37); BILIRUBIN,TOTAL 0.4 MG/DL (0.2-1.0)
[2018-03-29 21:00] VITALS: BP 150/88
--- NOTE | 2018-03-29 21:30 | NUR ---
ED Nurse Note: PT CONTINUES TO REST IN BED, MEDCIATED X 2 FOR PAIN, MEDS EFFECTIVE WITH PAIN LEVEL AT 4/10, NO CP, NO SOB, NO NAUSEA OR VOMITING, IV SITE PATENT WITH FLUIDS INFUSING, TOLERATING WELL, WILL CONTINUE TO CLOSELY MONITOR AND PREPARE FOR PT DISPOSITION.
[2018-03-29] MEDS ORDERED: ROBAXIN500 MG PO (21:40)
[2018-03-29] MEDS ORDERED: IBUPROFEN600 MG ORAL (21:40)
--- NOTE | 2018-03-29 21:55 | NUR ---
Spoke with Alexandra at [facility], aware of patients reurn back home by ambulance. ETA-10-15 min-[facility].
[2018-03-29 22:10] VITALS: BP 154/92
[2018-03-29 22:20] VITALS: BP 154/92
--- NOTE | 2018-03-29 22:20 | NUR ---
ED Nurse Note: [facility] HAS ARRIVED FOR PT TRANSPORT, RIG#[id number], REPORT GIVEN TO RINA LEIGH ALONG WITH D/C INSTRUCTIONS AND PT PRESCRIPTION, PT IS AWAKE, ALERT AND ORIENTED X 4, AMBULATORY, NO CP, NO PAIN AT ALL, NO SOB OR LABORED BREATHING, SAT AND REVIEWED WITH PT F/U INFO AND D/C INSTRUCTIONS, ALONG WITH PROPER MEDICATION ADMINISTRATION AND S/S TO CONTINUE TO MONITOR FOR, PT IV LINE AND ARMBAND REMOVED WITHOUT COMPLICATIONS, NAD NOTED DURING D/C BACK TO ASSISTED LIVING FACILITY.
--- NOTE | 2018-03-30 10:51 | Diagnostic Imaging Report ---
Indication: Abdominal pain Technique: Continuous helical transaxial imaging of the abdomen and pelvis was obtained from the lung bases to the pubic symphysis during intravenous contrast administration. Coronal 2-D reformats were also obtained. Study obtained in a Siemens sensation [address] Automatic Exposure Control was utilized. Total Dose length Product (DLP): 710.[address] Dose Index Volume (CTDIvol): 14.79 mGy Comparison: None Findings: There is mild atelectasis at the lung bases. There is a large hiatal hernia. There are calcified granulomata noted within the spleen. There is scarring involving the kidneys bilaterally. There are punctate calcifications within both kidneys likely nonobstructive stones. There is no hydronephrosis. The appendix is identified and appears normal. Uterus is atrophic. Urinary bladder is relatively nondistended. Small umbilical hernia containing fat demonstrated. There is narrowing of intervertebral discs and accompanying endplate osteophyte formation. Hypertrophied facet joints also demonstrated. Scoliosis noted involving the thoracolumbar spine. IMPRESSION: No acute findings. Normal appendix. Old granulomatous disease. Small umbilical hernia containing fat. Hiatal hernia. Atherosclerotic vascular disease Scarring involving the kidneys bilaterally. Degenerative changes of the spine The CT scanner at [facility] is accredited by the [employer] and the scans are performed using dose optimization techniques as appropriate to a performed exam including Automatic Exposure control.
== END 2018-03-29 22:27 | disposition home or self-care (01) ==
LOC: EDBD 17:59 → EMR 18:12
DX: R10.9 Unspecified abdominal pain (principal); I10 Essential (primary) hypertension; K42.9 Umbilical hernia without obstruction or gangrene; K44.9 Diaphragmatic hernia without obstruction or gangrene
CPT/HCPCS: 36415; 74177; 80053; 80185; 81003; 83690; 85025; 85610; 85730; 96361; 96374; 96375; 96376; 99284; J2270; J2405; Q9967

== ENCOUNTER 2018-11-05 19:32 | Emergency (ER) | payer MEDICARE, MEDICAID ==
[~2018-11-05] VITALS: Ht 167.6 cm; Wt 72.6 kg
[~2018-11-05 19:32] MED LIST changes: +ACETAMINOPHEN325 M1 ORAL; +ASPIRIN-LOW81 MG ORAL; +DILANTIN50 MG ORAL; +HYDRALAZINE HC100 MG ORAL; +IBUPROFEN600 MG ORAL; +KEPPRA500 M4 ORAL; +LABETALOL HCL200 MG ORAL; +MILK OF MA400 MG/51 ORAL; +MIRTAZAPINE7.5 MG ORAL; +PHENYTOIN SODI100 MG ORAL; +ROBAXIN500 MG PO; +ZOFRAN4 M1 ORAL; +ZOFRAN4 M3 ORAL
[2018-11-05 19:50] VITALS: BP 166/79
--- NOTE | 2018-11-05 19:50 | Emergency Room Report ---
History of Present Illness General Chief Complaint: Abdominal Pain Source: Patient Present Illness [facility] Disclaimer: Please note that this report is being documented using [employer] technology. This can lead to erroneous entry secondary to incorrect interpretation by the dictating instrument. HPI: Is a 73-year-old female with history of hypertension and recurrent urinary tract infection presented for evaluation of left sided flank pain. Symptoms began last night. She notes a aching pain over the left side that radiates down into the left lower quadrant and to the pelvis. Denies any pain with urination, burning with urination, hematuria, nausea, vomiting. Denies changes in bowel habits. Denies fevers, chills, URI symptoms. No other complaints at this time. She states she was treated successfully for urinary tract infection approximately 1.5 months ago. States it presented in a similar fashion. PMH: Hypertension PSH: Denies Allergies: Denies Social Hx: Current smoker. Denies alcohol or drug use Allergies: Coded Allergies: NO KNOWN DRUG ALLERGIES (Unverified Allergy, Unknown, 02/04/14) Patient History Last Menstrual Period: n/a Nursing Documentation-PMH Past Medical History: No History, Except For Hx Cardiac Problems: Yes Hx Hypertension: Yes Hx Cancer: No Hx Gastrointestinal Problems: No Hx Neurological Problems: Yes Hx Seizures: Yes Review of Systems All Other Systems: negative except mentioned in HPI Physical Exam Vital Signs Date Time Temp Pulse Resp B/P (MAP) Pulse Ox O2 Delivery O2 Flow Rate FiO2 11/05/18 19:33 97.9 69 18 166/79 (108) Room Air General: Awake and alert, no acute distress HEENT: NC/AT. EOMI. Resp: Normal work of breathing. Abdomen: Abdomen is soft, nondistended. Nontender. No rebound. No masses. Skin: Intact. No abrasions, laceration or rash over the exposed skin MSK: Normal tone and bulk. Moving all extremities. No obvious deformity. Neuro: Awake and alert. Mentating appropriately. Back/Spine: Left-sided CVA tenderness. Leg negative on the right. Medical Decision Making Diagnostic Impression: Primary Impression: Flank pain ER Course This is 73-year-old female with history of urinary tract infection presented for evaluation of 24 hours left-sided flank pain. The patient is well-appearing , afebrile, no acute distress. States is similar to prior UTI presentations. Also on the differential is nephrolithiasis and possible pancreatitis however less likely. Will obtain screening labs and can advance work-up if no obvious infection is found. Laboratory Tests Test 11/05/18 20:05 White Blood Count 5.0 K/UL (4.8-10.8) Red Blood Count 4.63 M/UL (4.20-5.40) Hemoglobin 13.5 G/DL (12.0-16.0) Hematocrit 41.4 % (37.0-47.0) Mean Corpuscular Volume 89 FL (80-99) Mean Corpuscular Hemoglobin 29.0 PG (27.0-31.0) Mean Corpuscular Hemoglobin Concent 32.5 G/DL (32.0-36.0) Red Cell Distribution Width 10.7 % (11.6-14.8) L Platelet Count 112 K/UL (150-450) L Mean Platelet Volume 10.1 FL (6.5-10.1) Neutrophils (%) (Auto) % (45.0-75.0) Lymphocytes (%) (Auto) % (20.0-45.0) Monocytes (%) (Auto) % (1.0-10.0) Eosinophils (%) (Auto) % (0.0-3.0) Basophils (%) (Auto) % (0.0-2.0) Differential Total Cells Counted 100 Neutrophils % (Manual) 30 % (45-75) L Lymphocytes % (Manual) 57 % (20-45) H Monocytes % (Manual) 9 % (1-10) Eosinophils % (Manual) 2 % (0-3) Basophils % (Manual) 2 % (0-2) Band Neutrophils 0 % (0-8) Platelet Estimate Decreased L Platelet Morphology Normal Red Blood Cell Morphology Normal Urine Color Brown Urine Appearance Clear Urine pH 5 (4.5-8.0) Urine Specific [place] 1.025 (1.005-1.035) Urine Protein 2+ (NEGATIVE) H Urine Glucose (UA) Negative (NEGATIVE) Urine Ketones 1+ (NEGATIVE) H Urine Blood Negative (NEGATIVE) Urine Nitrite Negative (NEGATIVE) Urine Bilirubin 1+ (NEGATIVE) H Urine Ictotest Negative (NEGATIVE) Urine Urobilinogen 1 MG/DL (0.0-1.0) H Urine Leukocyte Esterase 1+ (NEGATIVE) H Urine RBC 0-2 /HPF (0 - 2) Urine WBC 2-4 /HPF (0 - 2) Urine Squamous Epithelial Cells Few /LPF (NONE/OCC) Urine Bacteria Few /HPF (NONE) Sodium Level 138 MMOL/L (136-145) Potassium Level 4.0 MMOL/L (3.5-5.1) Chloride Level 103 MMOL/L (98-107) Carbon Dioxide Level 23 MMOL/L (21-32) Anion Gap 12 mmol/L (5-15) Blood Urea Nitrogen 24 mg/dL (7-18) H Creatinine 1.4 MG/DL (0.55-1.30) H Estimate Glomerular Filtration Rate mL/min (>60) Glucose Level 96 MG/DL (74-106) Calcium Level 9.7 MG/DL (8.5-10.1) Total Bilirubin 0.4 MG/DL (0.2-1.0) Aspartate Amino Transferase (AST) 30 U/L (15-37) Alanine Aminotransferase (ALT) 18 U/L (12-78) Alkaline Phosphatase 66 U/L (46-116) Total Protein 8.5 G/DL (6.4-8.2) H Albumin 3.7 G/DL (3.4-5.0) Globulin 4.8 g/dL Albumin/Globulin Ratio 0.8 (1.0-2.7) L Lipase 233 U/L (73-393) CT/MRI/US Diagnostic Results CT/MRI/US Diagnostic Results : Impression Preliminary Findings Only See Final Report For Complete Findings CT ABDOMEN & PELVIS Without Contrast: Lower lungs: No acute findings. Liver: Calcified granulomas. Gallbladder: Unremarkable. Spleen, pancreas, and adrenal glands: No acute findings. Multiple splenic calcified granulomas. Kidneys: No hydronephrosis or obstructive nephrolithiasis. Multiple nonobstructive stones bilaterally. This was also seen previously. Left kidney is atrophic. Bowel: No bowel obstruction. Large hiatal hernia. Colonic diverticulosis. Appendix: No convincing appendicitis. Bladder: Unremarkable. Pelvic organs: Unremarkable. Vessels: No aortic aneurysm. Tortuous and ectatic measuring up to 2.5 cm. Bones: No acute fracture. Radiologist: Karen Aguilar MD Study ready at 22:10 and initial results transmitted at 22:29 Reevaluation Time: 22:30 Last Vital Signs Date Time Temp Pulse Resp B/P (MAP) Pulse Ox O2 Delivery O2 Flow Rate FiO2 11/05/18 19:33 97.9 69 18 166/79 (108) Room Air Reevaluation Impression Labs show slight elevation in the creatinine and BUN consistent with a minor acute kidney injury and the patient is receiving 2 L IV fluid urinalysis does not suggest an acute infection. Patient continued to have pain over the left flank and a CT scan without contrast was performed concern for nephrolithiasis. There are multiple nonobstructing kidney stones however no hydronephrosis, no intra-ureteral stones, no other major abnormalities. She has multiple calcified granulomas but this is seen on prior scans. The left kidney is also atrophic which was also demonstrated on prior imaging. We will provide IV hydration and discharge the patient home to follow-up with her PMD. Discussed reasons to return to the emergency department. She understands and agrees with the treatment plan. Disposition: ASSISTED LIVING Condition: Stable Kvng Bray MD Nov 05, 2018 19:50
--- NOTE | 2018-11-05 19:55 | NUR ---
ED Nurse Note: Patient was BIBA from [facility] due to left flank pain 09/19. Stated that last time when she had same pain it was UTI. Patient has unsteady gait, AAO x4, VSS at this time, skin is warm to touch.
[2018-11-05 20:35] LABS: ANION GAP 12 mmol/L (5-15); BLOOD UREA NITROGEN 24 mg/dL (7-18); CALCIUM 9.7 MG/DL (8.5-10.1); CARBON DIOXIDE 23 MMOL/L (21-32); CHLORIDE 103 MMOL/L (98-107); CREATININE 1.4 MG/DL (0.55-1.30); SODIUM 138 MMOL/L (136-145)
[2018-11-05 20:36] LABS: APPEARANCE,URINE CLEAR; BILIRUBIN, URINE 1+ (NEGATIVE); COLOR,URINE BROWN; GLUCOSE, URINE (UA) NEGATIVE (NEGATIVE); HEMATOCRIT 41.4 % (37.0-47.0); HEMOGLOBIN 13.5 G/DL (12.0-16.0); KETONES,URINE 1+ (NEGATIVE); LEUKOCYTE ESTERASE ,URINE 1+ (NEGATIVE); MEAN CORPUSCULAR VOLUME 89 FL (80-99); NITRITE,URINE NEGATIVE (NEGATIVE); PH,URINE 5 (4.5-8.0); PLATELET COUNT 112 K/UL (150-450); PROTEIN,URINE 2+ (NEGATIVE); RED BLOOD COUNT 4.63 M/UL (4.20-5.40); RED CELL DISTRIBUTION WIDTH 10.7 % (11.6-14.8); UROBILINOGEN,URINE 1 MG/DL (0.0-1.0)
[2018-11-05 20:39] LABS: ALANINE AMINOTRANSFERASE 18 U/L (12-78); ALBUMIN 3.7 G/DL (3.4-5.0); ALBUMIN/GLOBULIN RATIO 0.8 (1.0-2.7); ALKALINE PHOSPHATASE 66 U/L (46-116); ASPARTATE AMINO TRANSFERASE 30 U/L (15-37); BILIRUBIN,TOTAL 0.4 MG/DL (0.2-1.0)
--- NOTE | 2018-11-05 22:30 | Diagnostic Imaging Report ---
Indication: Abdominal pain Technique: Continuous helical transaxial imaging of the abdomen and pelvis was obtained from the lung bases to the pubic symphysis. No intravenous contrast was administered. Coronal 2-D reformats were also obtained. Automatic Exposure Control was utilized. Total Dose length Product (DLP): [address] Dose Index Volume (CTDIvol): 26 mGy Comparison: none Findings: There is a moderate size hiatal hernia. Calcifications in the liver and spleen consistent with old granulomatous disease. Mild patchy densities at the lung bases with some bronchiectasis likely representing scarring. Aorta is moderately calcified. Gallbladder is unremarkable. There are punctate calcifications within both kidneys most of which are likely or vascular. Presence of 5 nonobstructive renal stones not excludable. Diverticulosis of the colon demonstrated. No definite diverticulitis. Appendix is normal. There is no free fluid. Bowel gas pattern is nonobstructive. Atrophic uterus noted. Urinary bladder is unremarkable. There is narrowing of intervertebral discs and accompanying endplate osteophyte formation. Hypertrophied facet joints also demonstrated. Moderate scoliosis of the upper lumbar lower thoracic spine convex towards the right noted. IMPRESSION: No acute findings appreciated. Extensive vascular disease probably accounting for densities in both kidneys. Nonobstructive stones not excluded. Basilar lung scarring with traction bronchiectasis. Moderate hiatal hernia Old granulomatous disease Moderate atherosclerotic vascular disease Diverticulosis of the colon. Degenerative changes of the spine. Scoliosis. [facility] has communicated the preliminary results to the Emergency Department. Their findings are largely concordant with this report. The CT scanner at [facility] is accredited by the [employer] and the scans are performed using dose optimization techniques as appropriate to a performed exam including Automatic Exposure control.
[2018-11-05 22:50] VITALS: BP 156/76
[2018-11-06 00:56] VITALS: BP 168/76
[2018-11-06 01:03] VITALS: BP 168/76
--- NOTE | 2018-11-06 01:04 | NUR ---
ED Nurse Note: Patient was transfered to the [facility] via [facility] # [id number]. Patient AAO x4, VSS at this time, skin is warm to touch. Patient was given dc instructions, pt was able to verbalize understanding, pt id band and iv site removed without complications. pt is able to ambulate with steady gait. pt took all belongings.
[2018-11-08] MEDS ORDERED: CEPHALEXIN500 MG ORAL (16:40)
== END 2018-11-06 01:07 | disposition home or self-care (01) ==
LOC: EDBD 19:32 → EMR 19:50
DX: R10.9 Unspecified abdominal pain (principal); I10 Essential (primary) hypertension; F17.200 Nicotine dependence, unspecified, uncomplicated; Z87.440 Personal history of urinary (tract) infections; N20.0 Calculus of kidney; K44.9 Diaphragmatic hernia without obstruction or gangrene; K57.90 Diverticulosis of intestine, part unspecified, without perforation or abscess without bleeding; R79.89 Other specified abnormal findings of blood chemistry
CPT/HCPCS: 36415; 74176; 80053; 81003; 83690; 85007; 85025; 96360; 96361; 99284

== ENCOUNTER → 2018-11-08 | Emergency (ER) | payer MEDICARE, MEDICAID ==
[~2018-11-08] VITALS: Ht 165.1 cm; Wt 73.9 kg
[~2018-11-08] MED LIST changes: +CEPHALEXIN500 MG ORAL; +Cephalexin 500mg cap ORAL ONE; +HYDROcodone/Acetamin 5/325 tab ORAL ONE
--- NOTE | 2018-11-08 16:00 | NUR ---
ED Nurse Note:urine was sent to labs and pain meds given per pt's request
[2018-11-08 16:05] LABS: APPEARANCE,URINE SLIGHTLY CLOUDY; BILIRUBIN, URINE NEGATIVE (NEGATIVE); GLUCOSE, URINE (UA) NEGATIVE (NEGATIVE); KETONES,URINE 3+ (NEGATIVE); LEUKOCYTE ESTERASE ,URINE 1+ (NEGATIVE); NITRITE,URINE NEGATIVE (NEGATIVE); PH,URINE 6 (4.5-8.0); PROTEIN,URINE 2+ (NEGATIVE); UROBILINOGEN,URINE NORMAL MG/DL (0.0-1.0)
[2018-11-08 16:10] LABS: COLOR,URINE YELLOW
--- NOTE | 2018-11-08 17:01 | NUR ---
ED Nurse Note:called assisted living with report- given to Angelica
[2018-11-08 17:03] VITALS: BP 129/70
--- NOTE | 2018-11-08 19:10 | NUR ---
Spoke with Alexandra at [facility], aware of patients going back.
[2018-11-08 19:18] VITALS: BP 129/70
--- NOTE | 2018-11-08 21:28 | Emergency Room Report ---
History of Present Illness General Chief Complaint: Pain Source: Patient Present Illness HPI 73-year-old female presents ED for evaluation. Brought in by EMS from nursing home facility. Complaining of left flank pain and dysuria. Was seen here 3 days ago for similar presentation. Had a work-up including CT was subsequently discharged. States the pain persists. Dull, 7 out of 10, nonradiating. Denies fevers or chills. Denies nausea or vomiting. No other aggravating relieving factors. Denies any other associated symptoms Allergies: Coded Allergies: NO KNOWN DRUG ALLERGIES (Unverified Allergy, Unknown, 02/04/14) Patient History Past Medical History: HTN, seizures Past Surgical History: none Pertinent Family History: none Social History: Denies: smoking, alcohol use, drug use Now: No Immunizations: UTD Reviewed Nursing Documentation: PMH: Agreed; PSxH: Agreed Nursing Documentation-PMH Past Medical History: No History, Except For Hx Cardiac Problems: Yes Hx Hypertension: Yes Hx Cancer: No Hx Gastrointestinal Problems: No Hx Neurological Problems: Yes Hx Seizures: Yes Review of Systems All Other Systems: negative except mentioned in HPI Physical Exam Vital Signs Date Time Temp Pulse Resp B/P (MAP) Pulse Ox O2 Delivery O2 Flow Rate FiO2 11/08/18 14:10 98.4 62 16 129/70 (89) 99 Room Air Sp02 EP Interpretation: reviewed, normal General Appearance: no apparent distress, alert, GCS 15, non-toxic Head: normocephalic, atraumatic Eyes: bilateral eye normal inspection, bilateral eye PERRL ENT: hearing grossly normal, normal pharynx, no angioedema, normal voice Neck: full range of motion, supple/symm/no masses Respiratory: chest non-tender, lungs clear, normal breath sounds, speaking full sentences Cardiovascular #1: regular rate, rhythm, no edema Cardiovascular #2: 2+ carotid (R), 2+ carotid (L), 2+ radial (R), 2+ radial (L) , 2+ dorsalis pedis (R), 2+ dorsalis pedis (L) Gastrointestinal: normal bowel sounds, non tender, soft, non-distended, no guarding, no rebound Rectal: deferred Genitourinary: normal inspection, CVA tenderness (L) Musculoskeletal: back normal, gait/station normal, normal range of motion, non- tender Neurologic: alert, oriented x3, responsive, motor strength/tone normal, sensory intact, speech normal Psychiatric: judgement/insight normal, memory normal, mood/affect normal, no suicidal/homicidal ideation Reflexes: 3+ bicep (R), 3+ bicep (L), 3+ tricep (R), 3+ tricep (L), 3+ knee (R) , 3+ knee (L) Lymphatic: no adenopathy Medical Decision Making Diagnostic Impression: Primary Impression: Urinary tract infection Qualified Codes: N39.0 - Urinary tract infection, site not specified ER Course Hospital Course 73 yo F presents to ED c/o L flank pain with dysuria Differential diagnoses include: UTI, cystitis, pyelonephritis Clinical course Patient placed on stretcher. After initial history and physical I viewed EMR. Patient was seen here on 11/05. Had work-up including labs UA and CT which were unremarkable. Patient was subsequently discharged back to facility I ordered UA, pain meds UA + bacteria. Patient afebrile, nontoxic-appearing. Vitals stable. Given Keflex in ED. Will discharge back to facility with prescription for antibiotics. Discussed with PMD Dr. Winchester he agrees with plan Diagnosis - UTI Stable and discharged SNF with prescriptions for Rx keflex. Instructed to followup with PMD. Return to ED if symptoms recur or worsen Labs Test 11/08/18 15:40 Urine Color Yellow Urine Appearance Slightly cloudy Urine pH 6 (4.5-8.0) Urine Specific [place] 1.015 (1.005-1.035) Urine Protein 2+ (NEGATIVE) Urine Glucose (UA) Negative (NEGATIVE) Urine Ketones 3+ (NEGATIVE) Urine Blood Negative (NEGATIVE) Urine Nitrite Negative (NEGATIVE) Urine Bilirubin Negative (NEGATIVE) Urine Urobilinogen Normal MG/DL (0.0-1.0) Urine Leukocyte Esterase 1+ (NEGATIVE) Urine RBC 0-2 /HPF (0 - 2) Urine WBC 10-15 /HPF (0 - 2) Urine Squamous Epithelial Cells Moderate /LPF (NONE/OCC) Urine Bacteria Many /HPF (NONE) Last Vital Signs Date Time Temp Pulse Resp B/P (MAP) Pulse Ox O2 Delivery O2 Flow Rate FiO2 11/08/18 19:18 98.4 82 16 129/70 99 Room Air Status: improved Disposition: XFER SNF Condition: Stable Scripts Cephalexin* (KEFLEX*) 500 Mg Capsule 500 MG ORAL EVERY 6 HOURS for 7 Days, #28 CAP Prov: Darryl Rucker MD 11/08/18 Referrals: Kilo Winchester MD Patient Instructions: Dysuria Darryl Rucker MD Nov 08, 2018 21:28
== END ==
LOC: EDUNIT# 14:05 → EDBD 14:21 → EMR 21:42
DX: N39.0 Urinary tract infection, site not specified (principal); I10 Essential (primary) hypertension
CPT/HCPCS: 81003; 87086; 99283

== ENCOUNTER 2019-03-15 14:55 | Emergency (ER) | payer MEDICARE, MEDICAID ==
[~2019-03-15] VITALS: Ht 165.1 cm; Wt 58.1 kg
[~2019-03-15 14:55] MED LIST changes: -Cephalexin 500mg cap ORAL ONE; -HYDROcodone/Acetamin 5/325 tab ORAL ONE
[2019-03-15 15:30] VITALS: BP 142/70
--- NOTE | 2019-03-15 15:30 | NUR ---
ED Nurse Note: Pt came to ER from SNF. She has complaint of L groin pain 09/19. Pt has history of UTI a few weeks ago and that's when L groin pain began. Pt is alert and orientedx4, ambulatory with assist. Pt is set up in hallway bed.
--- NOTE | 2019-03-15 16:00 | NUR ---
ED Nurse Note: Dr Andersen notified that pt is difficult to draw labs. 3 nurses attempt. Labs drawn at 1600. Dr Andersen states no IV needed right now.
[2019-03-15] MEDS ORDERED: Tylenol #3 tab (300mg/30mg) ORAL ONE (18:00)
[2019-03-15 18:42] LABS: ANION GAP 11 mmol/L (5-15); BLOOD UREA NITROGEN 31 mg/dL (7-18); CALCIUM 10.2 MG/DL (8.5-10.1); CARBON DIOXIDE 24 MMOL/L (21-32); CHLORIDE 106 MMOL/L (98-107); CREATININE 1.4 MG/DL (0.55-1.30); POTASSIUM 3.8 MMOL/L (3.5-5.1); SODIUM 141 MMOL/L (136-145)
[2019-03-15 18:49] LABS: ALANINE AMINOTRANSFERASE 26 U/L (12-78); ALBUMIN 3.9 G/DL (3.4-5.0); ALBUMIN/GLOBULIN RATIO 0.8 (1.0-2.7); ALKALINE PHOSPHATASE 78 U/L (46-116); ASPARTATE AMINO TRANSFERASE 36 U/L (15-37); BILIRUBIN,TOTAL 0.3 MG/DL (0.2-1.0)
[2019-03-15 19:00] VITALS: BP 132/72
--- NOTE | 2019-03-15 19:50 | NUR ---
ED Nurse Note: URINE COLLECTED; SENT DOWN TO LAB.
[2019-03-15] MEDS ORDERED: Tylenol #3 tab (300mg/30mg) ONE (20:04)
[2019-03-15 20:16] LABS: HEMOGLOBIN 13.6 G/DL (12.0-16.0); MEAN CORPUSCULAR VOLUME 95 FL (80-99); PLATELET COUNT 148 K/UL (150-450); RED BLOOD COUNT 4.72 M/UL (4.20-5.40); RED CELL DISTRIBUTION WIDTH 11.7 % (11.6-14.8); WHITE BLOOD COUNT 5.3 K/UL (4.8-10.8)
[2019-03-15 20:21] LABS: APPEARANCE,URINE CLOUDY; COLOR,URINE YELLOW; GLUCOSE, URINE (UA) NEGATIVE (NEGATIVE); KETONES,URINE 1+ (NEGATIVE); PROTEIN,URINE 2+ (NEGATIVE)
[2019-03-15 20:22] LABS: BILIRUBIN, URINE NEGATIVE (NEGATIVE); LEUKOCYTE ESTERASE ,URINE 3+ (NEGATIVE); NITRITE,URINE POSITIVE (NEGATIVE); UROBILINOGEN,URINE NORMAL MG/DL (0.0-1.0)
--- NOTE | 2019-03-15 22:13 | Emergency Room Report ---
History of Present Illness General Chief Complaint: Pain Source: Patient Present Illness HPI This patient complains of pain in her left groin. She states that she believes she has a urinary tract infection. Denies fever chills. She denies nausea or vomiting. She presents from an assisted living facility. She has no other complaints. Allergies: Coded Allergies: NO KNOWN DRUG ALLERGIES (Unverified Allergy, Unknown, 02/04/14) Patient History Past Medical History: see triage record, HTN, COPD, seizures Social History: Denies: smoking, alcohol use, drug use Reviewed Nursing Documentation: PMH: Agreed; PSxH: Agreed Nursing Documentation-PM Past Medical History: No History, Except For Hx Hypertension: Yes Hx COPD: Yes - EPILEPSY Hx Cancer: No Hx Gastrointestinal Problems: No Hx Neurological Problems: Yes Hx Seizures: Yes Review of Systems All Other Systems: negative except mentioned in HPI Physical Exam Vital Signs Date Time Temp Pulse Resp B/P (MAP) Pulse Ox O2 Delivery O2 Flow Rate FiO2 03/15/19 14:59 98.4 68 16 141/72 (95) 99 Room Air Sp02 EP Interpretation: reviewed, normal General Appearance: no apparent distress, alert, GCS 15, non-toxic Head: normocephalic, atraumatic Eyes: bilateral eye normal inspection, bilateral eye PERRL ENT: hearing grossly normal, normal pharynx, no angioedema, normal voice Neck: full range of motion, supple/symm/no masses Respiratory: chest non-tender, lungs clear, normal breath sounds, no respiratory distress, no retraction, no accessory muscle use, speaking full sentences Cardiovascular #1: regular rate, rhythm, no edema Gastrointestinal: normal bowel sounds, non tender, soft, non-distended, no guarding, no rebound, tenderness - TTP in the supra-pubic region Rectal: deferred Musculoskeletal: back normal, normal range of motion, non-tender Neurologic: alert, oriented, sensory intact, responsive, speech normal, no focal defects Psychiatric: judgement/insight normal, mood/affect normal, no suicidal/ homicidal ideation Skin: other - See RN skin exam Medical Decision Making Diagnostic Impression: Primary Impression: Pyelonephritis ER Course This patient has a urinary tract infection. She has a history of recurrent urinary tract infections and I am concerned she may have a resistant pathogen. This patient will be admitted for IV antibiotics and close monitoring. She is admitted to the medical surgical floor. Laboratory Tests Test 2/3/20 17:53 03/15/19 19:35 03/15/19 19:50 Sodium Level 141 MMOL/L (136-145) Potassium Level 3.8 MMOL/L (3.5-5.1) Chloride Level 106 MMOL/L (98-107) Carbon Dioxide Level 24 MMOL/L (21-32) Anion Gap 11 mmol/L (5-15) Blood Urea Nitrogen 31 mg/dL (7-18) H Creatinine 1.4 MG/DL (0.55-1.30) H Estimate Glomerular Filtration Rate mL/min (>60) Glucose Level 97 MG/DL (74-106) Calcium Level 10.2 MG/DL (8.5-10.1) H Total Bilirubin 0.3 MG/DL (0.2-1.0) Aspartate Amino Transferase (AST) 36 U/L (15-37) Alanine Aminotransferase (ALT) 26 U/L (12-78) Alkaline Phosphatase 78 U/L (46-116) Total Protein 8.6 G/DL (6.4-8.2) H Albumin 3.9 G/DL (3.4-5.0) Globulin 4.7 g/dL Albumin/Globulin Ratio 0.8 (1.0-2.7) L White Blood Count 5.3 K/UL (4.8-10.8) Red Blood Count 4.72 M/UL (4.20-5.40) Hemoglobin 13.6 G/DL (12.0-16.0) Hematocrit 45.0 % (37.0-47.0) Mean Corpuscular Volume 95 FL (80-99) Mean Corpuscular Hemoglobin 28.9 PG (27.0-31.0) Mean Corpuscular Hemoglobin Concent 30.3 G/DL (32.0-36.0) L Red Cell Distribution Width 11.7 % (11.6-14.8) Platelet Count 148 K/UL (150-450) L Mean Platelet Volume 11.8 FL (6.5-10.1) H Neutrophils (%) (Auto) % (45.0-75.0) Lymphocytes (%) (Auto) % (20.0-45.0) Monocytes (%) (Auto) % (1.0-10.0) Eosinophils (%) (Auto) % (0.0-3.0) Basophils (%) (Auto) % (0.0-2.0) Differential Total Cells Counted 100 Neutrophils % (Manual) 20 % (45-75) L Lymphocytes % (Manual) 68 % (20-45) H Monocytes % (Manual) 8 % (1-10) Eosinophils % (Manual) 4 % (0-3) H Basophils % (Manual) 0 % (0-2) Band Neutrophils 0 % (0-8) Platelet Estimate Decreased L Platelet Morphology Normal Polychromasia 1+ Hypochromasia 1+ Urine Color Yellow Urine Appearance Cloudy Urine pH 5.0 (4.5-8.0) Urine Specific [place] 1.015 (1.005-1.035) Urine Protein 2+ (NEGATIVE) H Urine Glucose (UA) Negative (NEGATIVE) Urine Ketones 1+ (NEGATIVE) H Urine Blood 2+ (NEGATIVE) H Urine Nitrite Positive (NEGATIVE) H Urine Bilirubin Negative (NEGATIVE) Urine Urobilinogen Normal MG/DL (0.0-1.0) Urine Leukocyte Esterase 3+ (NEGATIVE) H Urine RBC 10-15 /HPF (0 - 2) H Urine WBC 60-80 /HPF (0 - 2) H Urine Squamous Epithelial Cells Moderate /LPF (NONE/OCC) H Urine Bacteria Many /HPF (NONE) H Last Vital Signs Date Time Temp Pulse Resp B/P (MAP) Pulse Ox O2 Delivery O2 Flow Rate FiO2 03/15/19 20:36 98.4 03/15/19 15:30 76 16 142/70 98 Room Air Disposition: ADMITTED INPATIENT Condition: Stable Kelsey Andersen DO Mar 15, 2019 22:13
[2019-03-15] MEDS ORDERED: cefTRIAXone 1 GM in NS 55 ML IVPB ONE (22:15)
--- NOTE | 2019-03-15 22:30 | NUR ---
ED Nurse Note: iv access established. iv intact and patent; fluids running as prescribed.
[2019-03-15] MEDS ORDERED: NITROFURANTOIN100 M2 ORAL (23:08)
--- NOTE | 2019-03-15 23:11 | NUR ---
ED Nurse Note: Spoke with Alexandra from [facility], informed Alexandra that patient will be going back
[2019-03-16] VITALS: BP 135/70
--- NOTE | 2019-03-16 | NUR ---
ED Nurse Note: patient resting in bed with no acute distress. patient aware of peding discharge back to snf. waiting for transport.
[2019-03-16 00:45] VITALS: BP 135/70
--- NOTE | 2019-03-16 00:45 | NUR ---
ER DISCHARGE NOTE: Patient is cleared to be discharged per ERMD, pt is aox4, on room air, with stable vital signs. pt was given dc and prescription instructions, pt was able to verbalize understanding, pt id band and iv site removed without complications. pt is able to ambulate with steady gait. [facility] left with [facility]. pt took all belongings.
== END 2019-03-16 00:45 | disposition home or self-care (01) ==
LOC: EDBD 14:55 → EDUNIT# 14:55 → EMR 16:06 → CANBEDREQ 23:04 → EMR 03-16 00:45
DX: N12 Tubulo-interstitial nephritis, not specified as acute or chronic (principal); G40.909 Epilepsy, unspecified, not intractable, without status epilepticus; I10 Essential (primary) hypertension; J44.9 Chronic obstructive pulmonary disease, unspecified
CPT/HCPCS: 36415; 80053; 81003; 85007; 85025; 87086; 87181; 96365; 99284; J0696; J7030

== ENCOUNTER 2019-03-18 11:23 | Inpatient (IN) | payer MEDICARE, MEDICAID ==
[~2019-03-18] VITALS: Ht 170.2 cm; Wt 68.0 kg
[~2019-03-18 11:23] MED LIST changes: +NITROFURANTOIN100 M2 ORAL
[2019-03-18 11:43] VITALS: BP 150/76
--- NOTE | 2019-03-18 11:45 | NUR ---
ED Nurse Note: PT brought in by ambulance from [facility] due to syncopal episode that happened while sitting on w/c. episode was witnessed by the nursing staff. per nursing staff, pt did not hit her head or any injury noted. per nursing report, pt was passed out for about 5 min. Last seen normal time 0830 this morning. PT is usually ambulatory with assistance and basline orientation x 3. currently pt is alert, oriented to name and place only.
--- NOTE | 2019-03-18 12:00 | NUR ---
ED Nurse Note: blood sample sent
--- NOTE | 2019-03-18 12:09 | NUR ---
ED Nurse Note: pt went to ct
--- NOTE | 2019-03-18 12:20 | NUR ---
ED Nurse Note: back from ct
--- NOTE | 2019-03-18 12:22 | NUR ---
ED Nurse Note: x ray at bedside.
--- NOTE | 2019-03-18 12:39 | Diagnostic Imaging Report ---
Indication: Head trauma. Syncope Technique: Contiguous 5 mm thick transaxial imaging of the head obtained in a Siemens Sensation [address] scanner. Soft tissue and bone windows generated. Automatic Exposure Control was utilized. Total Dose length Product (DLP): 1426.[address] Dose Index Volume (CTDIvol): 62.7 mGy Comparison: 09/12/2016 Findings: Right posterior parietal encephalomalacia demonstrated with loss of cortical volume and low attenuation of the subcortical and periventricular white matter in this location. There is ex vacuo dilatation as compensation involving the posterior part of the right lateral ventricle. There is mild generalized atrophy seen globally involving the cerebrum and cerebellum. The ventricles and cortical sulci are consequently prominent. There is low-attenuation noted within periventricular white matter and brainstem consistent with chronic small vessel disease. There are small cystic lacunar infarcts within the basal ganglia bilaterally, thalami and within the left centrum semiovale. There is no mass effect or edema identified. There is no evidence of acute intracranial hemorrhage. There is deformity of the medial wall the left orbit and to a lesser extent the medial wall the right orbit. This is due to old trauma. 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 Generalized atrophy of the brain Evidence of chronic small vessel ischemia involving periventricular white matter. In this regard there are also old lacunar infarcts. Old medial orbital wall trauma bilaterally. No significant change from CT dated 09/12/[address] scanner at [facility] is accredited by the [employer] and the scans are performed using dose optimization techniques as appropriate to a performed exam including Automatic Exposure control.
[2019-03-18 12:40] LABS: BASOPHILS % (AUTO) 1.2 % (0.0-2.0); EOSINOPHILS % (AUTO) 2.5 % (0.0-3.0); HEMATOCRIT 36.9 % (37.0-47.0); HEMOGLOBIN 12.3 G/DL (12.0-16.0); LYMPHOCYTES % (AUTO) 41.6 % (20.0-45.0); MEAN CORPUSCULAR VOLUME 90 FL (80-99); MONOCYTES % (AUTO) 8.3 % (1.0-10.0); NEUTROPHILS % (AUTO) 46.4 % (45.0-75.0); PLATELET COUNT 142 K/UL (150-450); RED BLOOD COUNT 4.12 M/UL (4.20-5.40); WHITE BLOOD COUNT 4.6 K/UL (4.8-10.8)
--- NOTE | 2019-03-18 12:40 | Diagnostic Imaging Report ---
Indication: Dyspnea Comparison: 02/03/2016 A single view chest radiograph was obtained. Findings: No definite infiltrate or pulmonary vascular congestion identified. The heart is enlarged. The aorta is mildly enlarged consistent with atherosclerotic vascular disease. The bones are osteopenic. Impression: No acute disease
[2019-03-18 12:44] LABS: ANION GAP 10 mmol/L (5-15); BLOOD UREA NITROGEN 23 mg/dL (7-18); CALCIUM 9.8 MG/DL (8.5-10.1); CARBON DIOXIDE 25 MMOL/L (21-32); CHLORIDE 107 MMOL/L (98-107); CREATININE 1.2 MG/DL (0.55-1.30); POTASSIUM 3.9 MMOL/L (3.5-5.1); SODIUM 141 MMOL/L (136-145)
[2019-03-18 12:56] LABS: ALANINE AMINOTRANSFERASE 24 U/L (12-78); ALBUMIN 3.5 G/DL (3.4-5.0); ALBUMIN/GLOBULIN RATIO 0.8 (1.0-2.7); ALKALINE PHOSPHATASE 85 U/L (46-116); ASPARTATE AMINO TRANSFERASE 22 U/L (15-37); BILIRUBIN,TOTAL 0.2 MG/DL (0.2-1.0)
--- NOTE | 2019-03-18 13:39 | NUR ---
ED Nurse Note: urine sample sent to lab
[2019-03-18 14:01] LABS: APPEARANCE,URINE CLEAR; BILIRUBIN, URINE NEGATIVE (NEGATIVE); GLUCOSE, URINE (UA) NEGATIVE (NEGATIVE); KETONES,URINE NEGATIVE (NEGATIVE); LEUKOCYTE ESTERASE ,URINE 1+ (NEGATIVE); NITRITE,URINE NEGATIVE (NEGATIVE); PH,URINE 6 (4.5-8.0); PROTEIN,URINE NEGATIVE (NEGATIVE); UROBILINOGEN,URINE NORMAL MG/DL (0.0-1.0)
[2019-03-18 14:02] LABS: COLOR,URINE YELLOW
[2019-03-18 14:08] VITALS: BP 142/80
--- NOTE | 2019-03-18 14:09 | NUR ---
ED Nurse Note: PT in bed resting, no acute distress is noted. VSS
[2019-03-18 16:02] VITALS: BP 140/72
--- NOTE | 2019-03-18 16:15 | Emergency Room Report ---
History of Present Illness General Chief Complaint: Syncope Source: Patient, Medical Record Present Illness HPI This patient is brought in by EMS from a SNF. She was observed having a syncopal episode in her wheelchair at the SNF. There was no tonic/clonic activity. The patient has no complaints. There is no report of recent illness. No f/c/s, n/v/d, cough/cp, sob. No other symptoms. Allergies: Coded Allergies: NO KNOWN DRUG ALLERGIES (Unverified Allergy, Unknown, 02/04/14) Patient History Past Medical History: see triage record, old chart reviewed, HTN, dementia, seizures Social History: Denies: smoking, alcohol use, drug use Reviewed Nursing Documentation: PMH: Agreed; PSxH: Agreed Nursing Documentation-PMH Past Medical History: No History, Except For Hx Hypertension: Yes Hx COPD: Yes - EPILEPSY Hx Cancer: No Hx Gastrointestinal Problems: No Hx Neurological Problems: Yes Hx Seizures: Yes Review of Systems All Other Systems: negative except mentioned in HPI Physical Exam Vital Signs Date Time Temp Pulse Resp B/P (MAP) Pulse Ox O2 Delivery O2 Flow Rate FiO2 03/18/19 11:34 97.9 63 16 148/76 (100) 99 Room Air Sp02 EP Interpretation: reviewed, normal General Appearance: no apparent distress, alert, GCS 15, non-toxic Head: normocephalic, atraumatic Eyes: bilateral eye normal inspection, bilateral eye PERRL ENT: hearing grossly normal, normal pharynx, no angioedema, normal voice Neck: full range of motion, supple/symm/no masses Respiratory: chest non-tender, lungs clear, normal breath sounds, no respiratory distress, no retraction, no accessory muscle use, speaking full sentences Cardiovascular #1: regular rate, rhythm, no edema Gastrointestinal: normal bowel sounds, non tender, soft, non-distended, no guarding, no rebound Rectal: deferred Musculoskeletal: normal inspection, back normal, normal range of motion, non- tender Neurologic: alert, sensory intact, responsive, speech normal, grossly normal Psychiatric: judgement/insight normal, mood/affect normal, no suicidal/ homicidal ideation Skin: no rash, other - See RN skin exam Medical Decision Making Diagnostic Impression: Primary Impression: Syncope Additional Impressions: Arrhythmia Syncope vs Seizure ER Course There is report of syncope, but I suspect this patient had a seizure and was post-ictal. She has a hx of seizures and per EMS report had a post-ictal period. Overall, the patient's evaluation is reassuring. She will be admitted for further evaluation, monitoring and treatment. Laboratory Tests Test 03/18/19 12:07 03/18/19 13:45 White Blood Count 4.6 K/UL (4.8-10.8) L Red Blood Count 4.12 M/UL (4.20-5.40) L Hemoglobin 12.3 G/DL (12.0-16.0) Hematocrit 36.9 % (37.0-47.0) L Mean Corpuscular Volume 90 FL (80-99) Mean Corpuscular Hemoglobin 29.8 PG (27.0-31.0) Mean Corpuscular Hemoglobin Concent 33.3 G/DL (32.0-36.0) Red Cell Distribution Width 11.0 % (11.6-14.8) L Platelet Count 142 K/UL (150-450) L Mean Platelet Volume 9.9 FL (6.5-10.1) Neutrophils (%) (Auto) 46.4 % (45.0-75.0) Lymphocytes (%) (Auto) 41.6 % (20.0-45.0) Monocytes (%) (Auto) 8.3 % (1.0-10.0) Eosinophils (%) (Auto) 2.5 % (0.0-3.0) Basophils (%) (Auto) 1.2 % (0.0-2.0) Sodium Level 141 MMOL/L (136-145) Potassium Level 3.9 MMOL/L (3.5-5.1) Chloride Level 107 MMOL/L (98-107) Carbon Dioxide Level 25 MMOL/L (21-32) Anion Gap 10 mmol/L (5-15) Blood Urea Nitrogen 23 mg/dL (7-18) H Creatinine 1.2 MG/DL (0.55-1.30) Estimate Glomerular Filtration Rate mL/min (>60) Glucose Level 125 MG/DL (74-106) H Calcium Level 9.8 MG/DL (8.5-10.1) Total Bilirubin 0.2 MG/DL (0.2-1.0) Aspartate Amino Transferase (AST) 22 U/L (15-37) Alanine Aminotransferase (ALT) 24 U/L (12-78) Alkaline Phosphatase 85 U/L (46-116) Troponin I 0.016 ng/mL (0.000-0.056) Total Protein 7.8 G/DL (6.4-8.2) Albumin 3.5 G/DL (3.4-5.0) Globulin 4.3 g/dL Albumin/Globulin Ratio 0.8 (1.0-2.7) L Phenytoin (Dilantin) Level 4.8 ug/mL (10-20) L Urine Color Yellow Urine Appearance Clear Urine pH 6 (4.5-8.0) Urine Specific [place] 1.015 (1.005-1.035) Urine Protein Negative (NEGATIVE) Urine Glucose (UA) Negative (NEGATIVE) Urine Ketones Negative (NEGATIVE) Urine Blood Negative (NEGATIVE) Urine Nitrite Negative (NEGATIVE) Urine Bilirubin Negative (NEGATIVE) Urine Urobilinogen Normal MG/DL (0.0-1.0) Urine Leukocyte Esterase 1+ (NEGATIVE) H Urine RBC 0-2 /HPF (0 - 2) Urine WBC 2-4 /HPF (0 - 2) Urine Squamous Epithelial Cells Many /LPF (NONE/OCC) H Urine Bacteria Few /HPF (NONE) EKG Diagnostic Results Rate: normal Rhythm: NSR ST Segments: no acute changes Other Impression Frequent PVC's Rhythm Strip Diag. Results EP Interpretation: yes Rate: 70's Rhythm: NSR, other - PVC's CT/MRI/US Diagnostic Results CT/MRI/US Diagnostic Results : Imaging Test Ordered: CT head Impression No acute findings. See official report in the EMR. Last Vital Signs Date Time Temp Pulse Resp B/P (MAP) Pulse Ox O2 Delivery O2 Flow Rate FiO2 03/18/19 16:02 98.0 73 17 140/72 97 Room Air Disposition: ADMITTED INPATIENT Condition: Stable Scripts Potassium Chloride (K-Tab ER) 20 Meq Tablet.er 40 MEQ ORAL DAILY for 10 Days, #10 TAB Prov: Martin Garcia M.D. 03/21/19 Hydralazine Hcl* (HYDRALAZINE HCL*) 25 Mg Tablet 50 MG ORAL Q8HR for 10 Days, #30 TAB Prov: Martin Garcia M.D. 03/21/19 Clonidine Hcl (CLONIDINE HCL) 0.1 Mg Tablet 0.1 MG ORAL Q4H PRN for 10 Days, #20 TAB PRN for SBP>170 Prov: Martin Garcia M.D. 03/21/19 Atorvastatin Calcium* (LIPITOR*) 20 Mg Tablet 20 MG ORAL BEDTIME for 10 Days, #10 TAB Prov: Martin Garcia M.D. 03/21/19 Referrals: Kilo Winchester MD (PCP) Kelsey Andersen DO Mar 18, 2019 16:15
[2019-03-18] MEDS ORDERED: AMLODIPINE BESY10 MG ORAL (16:57)
[2019-03-18] MEDS ORDERED: MIRTAZAPINE7.5 MG ORAL (16:57)
[2019-03-18] MEDS ORDERED: NORMODYNE300 MG ORAL (16:57)
[2019-03-18] MEDS ORDERED: DILANTIN100 MG ORAL (16:57)
[2019-03-18] MEDS ORDERED: HYDRALAZINE HC100 MG ORAL (16:57)
[2019-03-18] MEDS ORDERED: Phenytoin 500 MG in NS 110 ML IVPB ONE (17:30)
[2019-03-18 18:09] VITALS: BP 144/76
[2019-03-18] MEDS ORDERED: Albuterol/Ipratropium 3ml neb HHN PRN (19:15)
--- NOTE | 2019-03-18 19:16 | History and Physical ---
History of Present Illness General Date patient seen: Mar 19, 2019 Reason for Hospitalization: Syncope Present Illness HPI Patient is a 74-year-old female, poor historian who resides in a nursing facility and was brought in after she was witnessed to have fainted while sitting in her wheelchair. Per reports staff at the facility told EMS that patient is alert and oriented x3 at baseline but has been altered. Patient has a history of seizures and UTIs. There was no report of patient shaking however her left arm was twitching. No report of fever, chills, shortness of breath, nausea, vomiting, diarrhea. At the time of my exam, patient is only alert and oriented to self. She is very pleasant. Seems postictal. Past medical history: From the chart: Hypertension, seizure, depression, right MCA CVA, history of substance abuse, thrombocytopenia Past surgical history: Unknown patient unable to tell, Social history: Resident of nursing facility, previous history of substance abuse including amphetamine and cocaine Family history: Patient tells me that her son in a car crash, in [place], daughter of breast cancer. But based on previous records daughter of ?HIV Allergies: Coded Allergies: NO KNOWN DRUG ALLERGIES (Unverified Allergy, Unknown, 02/04/14) Medication History Scheduled Amlodipine Besylate* (Amlodipine Besylate*), 10 MG ORAL DAILY, (Reported) Amlodipine Besylate* (Amlodipine Besylate*), 10 MG ORAL DAILY, (Reported) Aspirin (Aspirin EC), 81 MG ORAL DAILY, (Reported) Carvedilol* (Carvedilol*), 3.125 MG ORAL EVERY 12 HOURS, (Reported) Cephalexin* (Keflex*), 500 MG ORAL EVERY 6 HOURS Escitalopram Oxalate* (Lexapro*), 10 MG ORAL DAILY, (Reported) Hydralazine Hcl* (Hydralazine Hcl*), 100 MG ORAL Q8HR, (Reported) Hydralazine Hcl* (Hydralazine Hcl*), 100 MG ORAL BID, (Reported) Labetalol HCl (Labetalol HCl), 300 MG ORAL EVERY 12 HOURS, (Reported) Labetalol Hcl* (Normodyne*), 200 MG ORAL QHS, (Reported) Levetiracetam (Keppra), 500 MG ORAL EVERY 12 HOURS, (Reported) Mirtazapine* (Remeron*), 15 MG ORAL BEDTIME, (Reported) Mirtazapine* (Mirtazapine*), 7.5 MG ORAL BEDTIME, (Reported) Nitrofurantoin Monohyd/M-Cryst* (Macrobid 100 Mg*), 100 MG ORAL EVERY 12 HOURS Phenytoin (Dilantin), 300 MG ORAL QHS, (Reported) Phenytoin Sodium Extended* (Dilantin*), 300 MG ORAL BEDTIME, (Reported) Patient History Healthcare decision maker Resuscitation status Advanced Directive on File Review of Systems ROS Narrative Unable to obtain due to mental status Physical Exam General Appearance: WD/WN, no apparent distress, alert, confused Lines, tubes and drains: peripheral HEENT: normocephalic, atraumatic, anicteric, mucous membranes moist, PERRL, EOMI Neck: non-tender, normal alignment, supple Respiratory/Chest: chest wall non-tender, lungs clear, normal breath sounds, no accessory muscle use Cardiovascular/Chest: normal peripheral pulses, normal rate, regular rhythm Abdomen: normal bowel sounds, non tender, soft, no organomegaly Extremities: normal range of motion, non-tender, normal inspection, no calf tenderness Skin Exam: normal pigmentation, warm/dry Neurologic: no motor/sensory deficits, alert, responsive, disoriented Musculoskeletal: normal muscle bulk Last 24 Hour Vital Signs Date Time Temp Pulse Resp B/P (MAP) Pulse Ox O2 Delivery O2 Flow Rate FiO2 03/18/19 16:02 98.0 73 17 140/72 97 Room Air 03/18/19 14:08 98.0 63 17 142/80 98 Room Air 03/18/19 11:43 97.9 60 16 150/76 99 Room Air 03/18/19 11:34 97.9 63 16 148/76 (100) 99 Room Air Laboratory Tests Test 03/18/19 12:07 03/18/19 13:45 White Blood Count 4.6 K/UL (4.8-10.8) L Red Blood Count 4.12 M/UL (4.20-5.40) L Hemoglobin 12.3 G/DL (12.0-16.0) Hematocrit 36.9 % (37.0-47.0) L Mean Corpuscular Volume 90 FL (80-99) Mean Corpuscular Hemoglobin 29.8 PG (27.0-31.0) Mean Corpuscular Hemoglobin Concent 33.3 G/DL (32.0-36.0) Red Cell Distribution Width 11.0 % (11.6-14.8) L Platelet Count 142 K/UL (150-450) L Mean Platelet Volume 9.9 FL (6.5-10.1) Neutrophils (%) (Auto) 46.4 % (45.0-75.0) Lymphocytes (%) (Auto) 41.6 % (20.0-45.0) Monocytes (%) (Auto) 8.3 % (1.0-10.0) Eosinophils (%) (Auto) 2.5 % (0.0-3.0) Basophils (%) (Auto) 1.2 % (0.0-2.0) Sodium Level 141 MMOL/L (136-145) Potassium Level 3.9 MMOL/L (3.5-5.1) Chloride Level 107 MMOL/L (98-107) Carbon Dioxide Level 25 MMOL/L (21-32) Anion Gap 10 mmol/L (5-15) Blood Urea Nitrogen 23 mg/dL (7-18) H Creatinine 1.2 MG/DL (0.55-1.30) Estimat Glomerular Filtration Rate mL/min (>60) Glucose Level 125 MG/DL (74-106) H Calcium Level 9.8 MG/DL (8.5-10.1) Total Bilirubin 0.2 MG/DL (0.2-1.0) Aspartate Amino Transf (AST/SGOT) 22 U/L (15-37) Alanine Aminotransferase (ALT/SGPT) 24 U/L (12-78) Alkaline Phosphatase 85 U/L (46-116) Troponin I 0.016 ng/mL (0.000-0.056) Total Protein 7.8 G/DL (6.4-8.2) Albumin 3.5 G/DL (3.4-5.0) Globulin 4.3 g/dL Albumin/Globulin Ratio 0.8 (1.0-2.7) L Phenytoin (Dilantin) Level 4.8 ug/mL (10-20) L Urine Color Yellow Urine Appearance Clear Urine pH 6 (4.5-8.0) Urine Specific [place] 1.015 (1.005-1.035) Urine Protein Negative (NEGATIVE) Urine Glucose (UA) Negative (NEGATIVE) Urine Ketones Negative (NEGATIVE) Urine Blood Negative (NEGATIVE) Urine Nitrite Negative (NEGATIVE) Urine Bilirubin Negative (NEGATIVE) Urine Urobilinogen Normal MG/DL (0.0-1.0) Urine Leukocyte Esterase 1+ (NEGATIVE) H Urine RBC 0-2 /HPF (0 - 2) Urine WBC 2-4 /HPF (0 - 2) Urine Squamous Epithelial Cells Many /LPF (NONE/OCC) H Urine Bacteria Few /HPF (NONE) Height (Feet): 5 Height (Inches): 7.00 Weight (Pounds): 150 Medications Current Medications Medications (Trade) Dose Ordered Sig/Chelly Route PRN Reason Start Time Stop Time Status Last Admin Dose Admin Acetaminophen (Tylenol) 650 mg Q4H PRN ORAL Mild Pain (Pain Scale 1-3) 03/18/19 19:15 04/17/19 19:14 UNV Acetaminophen (Tylenol) 650 mg Q4H PRN ORAL fever 03/18/19 19:15 04/17/19 19:14 UNV Albuterol/ Ipratropium (Albuterol/ Ipratropium) 3 ml Q4HR PRN HHN Shortness of Breath 03/18/19 19:15 03/23/19 19:14 UNV Dextrose (Dextrose 50%) 25 ml Q30M PRN IV Hypoglycemia 03/18/19 19:15 04/17/19 19:14 UNV Dextrose (Dextrose 50%) 50 ml Q30M PRN IV Hypoglycemia 03/18/19 19:15 04/17/19 19:14 UNV Objective Narrative EKG is personally interpreted by me: Normal sinus rhythm with frequent premature ventricular contractions. No acute ST-T changes. QTc 464 Chest x-ray as read by radiology: No acute disease CT head as read by radiology: IMPRESSION: Evidence of an old cortical infarct in the right posterior parietal lobe. Generalized atrophy of the brain Evidence of chronic small vessel ischemia involving periventricular white matter. In this regard there are also old lacunar infarcts. Old medial orbital wall trauma bilaterally. No significant change from CT dated 09/12/2016 Assessment/Plan Problem List: (1) Acute encephalopathy ICD Codes: G93.40 - Encephalopathy, unspecified SNOMED: 27820950, 432559516 (2) Acute hepatic encephalopathy ICD Codes: K72.00 - Acute and subacute hepatic failure without coma SNOMED: 0779206, 26105595 (3) PVCs (premature ventricular contractions) ICD Codes: I49.3 - Ventricular premature depolarization SNOMED: 18362533 (4) Seizure ICD Codes: R56.9 - Seizure SNOMED: 80188485 (5) Hypertension ICD Codes: I10 - Hypertension SNOMED: 40188012 (6) Syncope ICD Codes: R55 - Syncope and collapse SNOMED: 675755992 (7) Thrombocytopenia ICD Codes: D69.6 - Thrombocytopenia SNOMED: 030834722 Status: stable Assessment/Plan: 74-year-old female sent from nursing facility for possible seizure versus syncope. Patient currently encephalopathic and unable to contribute further to history. #Seizure #Syncope Admit to telemetry First troponin is negative. Serial troponins and EKG. Check magnesium. Replace electrolytes as needed Check TSH 2D echocardiogram Cardiology consult Seizure precautions Continue Keppra and phenytoin #PVCs Replace K and mag as needed 2D echocardiogram #Hypertension Continue amlodipine #History of right MCA stroke Continue aspirin ? Start atorvastatin #History of substance abuse #Depression Continue Lexapro #Thrombocytopenia Monitor closely VTE prophylaxis: SCD boots no heparin or Lovenox due to thrombocytopenia GI prophylaxis: Not indicated CODE STATUS: Full code. Will address again when patient oriented. I spent 70 minutes on this encounter. Greater than 50% spent in counseling care coordination. I spent 35 minutes in reviewing old records. Time of note may not reflect time of encounter. Martin Garcia M.D. Mar 18, 2019 19:16
--- NOTE | 2019-03-18 19:20 | NUR ---
ED Nurse Note: Pt taken up to Tele floor accompanied by knuckle strap sewer and RN in stable condition. IV site to left hand is intact. Belonging list signed off.
[2019-03-18 20:00] VITALS: BP 149/75
--- NOTE | 2019-03-18 20:00 | NUR ---
NURSE NOTES: Pt arrived on unit via gurney from ER and placed in room. They dropped off pt in room and told me to call Poppy in ER to get report. Called Poppy in ER to get report and got report. Initial assessment done. Pt fully oriented. Pt in stable condition. Pt here for syncope. No syncope noted upon admission on unit. Denies any pain. Denies any n/v or SOB. VSS T:97 HR:69 R:16 BP:149/75 O2:99% on room air. Pt able to ambulate by SBA and uses bedside commode/bedpan. Pt has L hand 22g patent. No skin issues noted. electronic device monitor placed on pt running Sinus Rhythm on the monitor. Belongings list verified. Pt resting in bed comfortably. Bed in low and locked position, call light within reach, bedside table within reach. Continue to monitor. Orders placed by Dr. Garcia.
[2019-03-18] MEDS: Phenytoin 100mg cap ORAL SCH (21:22)
[2019-03-19] VITALS: BP 142/62
[2019-03-19 04:00] VITALS: BP 147/84
--- NOTE | 2019-03-19 07:30 | NUR ---
HAND-OFF: Report given to Gena NG.
[2019-03-19 08:00] VITALS: BP 180/96
[2019-03-19] MEDS: Aspirin EC 81mg tab ORAL SCH (08:41)
--- NOTE | 2019-03-19 09:58 | Cardiac Electrophysiology PN ---
Subjective Subjective [id number] Objective Last 24 Hour Vital Signs Date Time Temp Pulse Resp B/P (MAP) Pulse Ox O2 Delivery O2 Flow Rate FiO2 03/19/19 08:42 84 180/96 03/19/19 08:42 84 180/96 03/19/19 08:00 96.7 84 19 180/96 (124) 96 03/19/19 07:55 79 18 96 Room Air 21 03/19/19 04:00 98.0 77 16 147/84 (105) 96 03/19/19 04:00 71 03/19/19 00:00 98.5 78 16 142/62 (88) 97 03/19/19 00:00 80 03/18/19 23:44 Room Air 03/18/19 23:34 Room Air 03/18/19 21:23 69 149/75 03/18/19 20:24 Room Air 03/18/19 20:00 83 03/18/19 20:00 97.0 69 16 149/75 (99) 99 03/18/19 19:20 98.0 72 18 144/80 98 Room Air 03/18/19 18:09 98.0 70 18 144/76 98 Room Air 03/18/19 16:02 98.0 73 17 140/72 97 Room Air 03/18/19 14:08 98.0 63 17 142/80 98 Room Air 03/18/19 11:43 97.9 60 16 150/76 99 Room Air 03/18/19 11:34 97.9 63 16 148/76 (100) 99 Room Air Intake and Output 03/18/19 03/19/19 19:00 07:00 Intake Total 2000 ml Balance 2000 ml Intake IV Total 2000 ml # Voids 1 # Bowel Movements 3 Laboratory Tests Test 03/18/19 12:07 03/18/19 13:45 03/19/19 06:05 White Blood Count 4.6 K/UL (4.8-10.8) L Red Blood Count 4.12 M/UL (4.20-5.40) L Hemoglobin 12.3 G/DL (12.0-16.0) Hematocrit 36.9 % (37.0-47.0) L Mean Corpuscular Volume 90 FL (80-99) Mean Corpuscular Hemoglobin 29.8 PG (27.0-31.0) Mean Corpuscular Hemoglobin Concent 33.3 G/DL (32.0-36.0) Red Cell Distribution Width 11.0 % (11.6-14.8) L Platelet Count 142 K/UL (150-450) L Mean Platelet Volume 9.9 FL (6.5-10.1) Neutrophils (%) (Auto) 46.4 % (45.0-75.0) Lymphocytes (%) (Auto) 41.6 % (20.0-45.0) Monocytes (%) (Auto) 8.3 % (1.0-10.0) Eosinophils (%) (Auto) 2.5 % (0.0-3.0) Basophils (%) (Auto) 1.2 % (0.0-2.0) Sodium Level 141 MMOL/L (136-145) Potassium Level 3.9 MMOL/L (3.5-5.1) Chloride Level 107 MMOL/L (98-107) Carbon Dioxide Level 25 MMOL/L (21-32) Anion Gap 10 mmol/L (5-15) Blood Urea Nitrogen 23 mg/dL (7-18) H Creatinine 1.2 MG/DL (0.55-1.30) Estimat Glomerular Filtration Rate mL/min (>60) Glucose Level 125 MG/DL (74-106) H Calcium Level 9.8 MG/DL (8.5-10.1) Total Bilirubin 0.2 MG/DL (0.2-1.0) Aspartate Amino Transf (AST/SGOT) 22 U/L (15-37) Alanine Aminotransferase (ALT/SGPT) 24 U/L (12-78) Alkaline Phosphatase 85 U/L (46-116) Troponin I 0.016 ng/mL (0.000-0.056) Total Protein 7.8 G/DL (6.4-8.2) Albumin 3.5 G/DL (3.4-5.0) Globulin 4.3 g/dL Albumin/Globulin Ratio 0.8 (1.0-2.7) L Phenytoin (Dilantin) Level 4.8 ug/mL (10-20) L Urine Color Yellow Urine Appearance Clear Urine pH 6 (4.5-8.0) Urine Specific [place] 1.015 (1.005-1.035) Urine Protein Negative (NEGATIVE) Urine Glucose (UA) Negative (NEGATIVE) Urine Ketones Negative (NEGATIVE) Urine Blood Negative (NEGATIVE) Urine Nitrite Negative (NEGATIVE) Urine Bilirubin Negative (NEGATIVE) Urine Urobilinogen Normal MG/DL (0.0-1.0) Urine Leukocyte Esterase 1+ (NEGATIVE) H Urine RBC 0-2 /HPF (0 - 2) Urine WBC 2-4 /HPF (0 - 2) Urine Squamous Epithelial Cells Many /LPF (NONE/OCC) H Urine Bacteria Few /HPF (NONE) Thyroid Stimulating Hormone (TSH) 1.098 uiU/mL (0.358-3.740) Microbiology Date/Time Source Procedure Growth Status 03/18/19 18:30 Rectum Received Bora Denis MD Mar 19, 2019 09:58
--- NOTE | 2019-03-19 11:10 | NUR ---
PT EVALUATION NOTE Patient seen for initial evaluation. Patient presents with generalized weakness, impaired balance and impaired coordination which affects patient's ability to perform mobility tasks safely. Patient requires SBA for bed mobility and CGA for transfers with FWW. Patient ambulates with CGA and FWW, unsteady gait and ataxic movements of BLEs. Patient will benefit from skilled inpatient PT intervention to address strength, balance and safety for improved level of independence with functional mobility. Recommend discharge to SNF once medically cleared by MD. No DME needs identified at this time, patient has FWW. Addendum: 03/19/19 at 1239 by KAELYN DUFF PT Amended: Links added.
[2019-03-19 12:00] VITALS: BP 185/90
--- NOTE | 2019-03-19 15:04 | NUR ---
CASE MANAGEMENT:REVIEW 74 YR OLD FEMALE BIBA FROM [facility] CC: SYNCOPE SI: SYNCOPE. ARRHYTHMIA 97.9 63 16 148/76 99% ON RA WBC-4.6 PLT-142 BUN+23 GLUCOSE+125 TROPONIN(-) IS: 1L NS BOLUS CT HEAD CHEST XRAY : TO TELEMETRY IS:2DECHO CAROTID DUPLEX ORTHOSTATIC VITALS
[2019-03-19 16:00] VITALS: BP 149/83
--- NOTE | 2019-03-19 16:22 | Diagnostic Imaging Report ---
Indication: Syncope TECHNIQUE: Duplex extracranial carotid and vertebral artery sonography performed with color flow imaging and waveform analysis. COMPARISON: None FINDINGS: Right carotid: Grayscale and color-flow imaging demonstrating no hemodynamically significant stenosis within the common carotid artery. There is moderate heterogeneous plaque within the carotid bifurcation and proximal visualized ICA with elevated velocity in the right ICA of 216 cm/s and IC/CCA ratio 2.2. Stenosis is between 50 and 69%. Actual stenosis is likely closer to 69%. Left carotid: Examination demonstrates a heterogeneous plaque within the left ICA with elevated velocity of 344 cm/s at peak systole and end-diastolic velocity of 68 cm/s. IC/CCA ratio is 4.4. Findings correspond to a diameter stenosis greater than 70%. Vertebral arteries: Antegrade flow demonstrated within both vertebral arteries. IMPRESSION: Severe left ICA stenosis estimated at greater than 70%. Moderate right ICA stenosis estimated at between 50 and 69%. 2 stenosis likely closer to 69% than 50%. Antegrade flow in both vertebral arteries. This report utilizes carotid stenosis grading criteria based on the meeting of Society of radiologists in ultrasound consensus conference, November 2001.
--- NOTE | 2019-03-19 19:55 | NUR ---
NURSE NOTES: Pt alert and oriented x4 on room air. Pt in stable condition.. Denies any pain at this time. Pt has L hand 22g patent. resting in bed comfortably. Bed in low and locked position, seizure precautions in place, call light within reach, bedside table within reach. will continue to monitor.
[2019-03-19 20:00] VITALS: BP 148/110
[2019-03-19] MEDS: Phenytoin 100mg cap ORAL SCH (21:31)
--- NOTE | 2019-03-19 21:34 | General Progress Note ---
Assessment/Plan Problem List: (1) Acute encephalopathy ICD Codes: G93.40 - Encephalopathy, unspecified SNOMED: 83291442, 307450439 (2) Acute hepatic encephalopathy ICD Codes: K72.00 - Acute and subacute hepatic failure without coma SNOMED: 2033197, 99495975 (3) PVCs (premature ventricular contractions) ICD Codes: I49.3 - Ventricular premature depolarization SNOMED: 25603741 (4) Seizure ICD Codes: R56.9 - Seizure SNOMED: 98143584 (5) Hypertension ICD Codes: I10 - Hypertension SNOMED: 18610203 (6) Syncope ICD Codes: R55 - Syncope and collapse SNOMED: 096822681 (7) Thrombocytopenia ICD Codes: D69.6 - Thrombocytopenia SNOMED: 133815742 Status: stable Assessment/Plan: 74-year-old female sent from nursing facility for possible seizure versus syncope. Patient currently encephalopathic and unable to contribute further to history. #Seizure #Syncope Admit to telemetry First troponin is negative. Serial troponins and EKG. Check magnesium. Replace electrolytes as needed Check TSH 2D echocardiogram Cardiology consult Seizure precautions Continue Keppra and phenytoin #PVCs Replace K and mag as needed 2D echocardiogram #Hypertension Continue amlodipine #History of right MCA stroke Continue aspirin ? Start atorvastatin #History of substance abuse #Depression Continue Lexapro #Thrombocytopenia Monitor closely VTE prophylaxis: SCD boots no heparin or Lovenox due to thrombocytopenia GI prophylaxis: Not indicated CODE STATUS: Full code. Will address again when patient oriented. I spent 40 minutes on this encounter. Greater than 50% spent in counseling care coordination. Time of note may not reflect time of encounter. Subjective Date patient seen: Mar 19, 2019 ROS Limited/Unobtainable: No Constitutional: Denies: no symptoms, chills, diaphoresis, fever, malaise, weakness, other HEENT: Denies: no symptoms, eye pain, blurred vision, tearing, double vision, ear pain, ear discharge, nose pain, nose congestion, throat pain, throat swelling, mouth pain, mouth swelling, other Cardiovascular: Denies: no symptoms, chest pain, edema, irregular heart rate, lightheadedness, palpitations, syncope, other Respiratory: Denies: no symptoms, cough, orthopnea, shortness of breath, SOB with excertion, SOB at rest, sputum, stridor, wheezing, other Gastrointestinal/Abdominal: Denies: no symptoms, abdomen distended, abdominal pain, black stools, tarry stools, blood in stool, constipated, diarrhea, difficulty swallowing, nausea, poor appetite, poor fluid intake, rectal bleeding , vomiting, other Genitourinary: Denies: no symptoms, burning, discharge, frequency, flank pain, hematuria, incontinence, pain, urgency, other Neurologic/Psychiatric: Denies: no symptoms, anxiety, depressed, emotional problems, headache, numbness, paresthesia, pre-existing deficit, seizure, tingling, tremors, weakness, other Endocrine: Denies: no symptoms, excessive sweating, flushing, intolerance to cold, intolerance to heat, increased hunger, increased thirst, increased urine, unexplained weight gain, unexplained weight loss, other Hematologic/Lymphatic: Denies: no symptoms, anemia, easy bleeding, easy bruising, other Allergies: Coded Allergies: NO KNOWN DRUG ALLERGIES (Unverified Allergy, Unknown, 02/04/14) Subjective Alert and awake. Has no complaints. Remains seizure-free overnight. Being seen by [employer] consultant. Objective Last 24 Hour Vital Signs Date Time Temp Pulse Resp B/P (MAP) Pulse Ox O2 Delivery O2 Flow Rate FiO2 03/19/19 21:02 77 18 99 Room Air 21 03/19/19 20:00 97.7 79 20 148/110 (123) 98 03/19/19 16:00 82 03/19/19 16:00 98.8 77 18 149/83 (105) 95 03/19/19 15:38 185/90 03/19/19 12:00 71 03/19/19 12:00 98.6 80 18 185/90 (121) 96 03/19/19 09:00 Room Air 03/19/19 08:42 84 180/96 03/19/19 08:42 84 180/96 03/19/19 08:00 96.7 84 19 180/96 (124) 96 03/19/19 08:00 75 03/19/19 07:55 79 18 96 Room Air 21 03/19/19 04:00 98.0 77 16 147/84 (105) 96 03/19/19 04:00 71 03/19/19 00:00 98.5 78 16 142/62 (88) 97 03/19/19 00:00 80 03/18/19 23:44 Room Air 03/18/19 23:34 Room Air Intake and Output 03/18/19 03/19/19 19:00 07:00 Intake Total 2000 ml Balance 2000 ml Intake IV Total 2000 ml # Voids 1 # Bowel Movements 3 Laboratory Tests 03/19/19 06:05: Thyroid Stimulating Hormone (TSH) 1.098 03/19/19 11:00: Troponin I 0.016 03/19/19 18:50: Troponin I 0.030 Height (Feet): 5 Height (Inches): 7.00 Weight (Pounds): 150 Objective HEENT: normocephalic, atraumatic, anicteric, mucous membranes moist, PERRL, EOMI Neck: non-tender, normal alignment, supple Respiratory/Chest: chest wall non-tender, lungs clear, normal breath sounds, no accessory muscle use Cardiovascular/Chest: normal peripheral pulses, normal rate, regular rhythm Abdomen: normal bowel sounds, non tender, soft, no organomegaly Extremities: normal range of motion, non-tender, normal inspection, no calf tenderness Skin Exam: normal pigmentation, warm/dry Neurologic: no motor/sensory deficits, alert, responsive, disoriented Musculoskeletal: normal muscle bulk Martin Garcia M.D. Mar 19, 2019 21:34
[2019-03-20] VITALS (7 sets, daily range): BP systolic 138–164; BP diastolic 86–98
[2019-03-20 03:24] LABS: HEMATOCRIT 36.9 % (37.0-47.0); HEMOGLOBIN 12.3 G/DL (12.0-16.0); MEAN CORPUSCULAR VOLUME 89 FL (80-99); PLATELET COUNT 136 K/UL (150-450); RED BLOOD COUNT 4.14 M/UL (4.20-5.40); WHITE BLOOD COUNT 5.1 K/UL (4.8-10.8)
[2019-03-20 03:33] LABS: ANION GAP 5 mmol/L (5-15); BLOOD UREA NITROGEN 26 mg/dL (7-18); CALCIUM 10.1 MG/DL (8.5-10.1); CARBON DIOXIDE 30 MMOL/L (21-32); CHLORIDE 108 MMOL/L (98-107); CREATININE 1.1 MG/DL (0.55-1.30); POTASSIUM 3.4 MMOL/L (3.5-5.1); SODIUM 143 MMOL/L (136-145)
--- NOTE | 2019-03-20 07:35 | NUR ---
HAND-OFF: Report given to HERNANDEZ Shah.
--- NOTE | 2019-03-20 08:10 | NUR ---
NURSE NOTES: pt in bed just woke up and is having breakfast now. Pt on [employer] services program associate no signs of cardiac or respiratory distress at this time. Call light within reach. Bed is locked and in lowest position. Pt reports no pain. Will continue to monitor pt and follow plans of care.
[2019-03-20] MEDS: Aspirin EC 81mg tab ORAL SCH (09:04)
[2019-03-20] MEDS ORDERED: HydrALAZINE 10mg Tab ORAL SCH (11:00)
--- NOTE | 2019-03-20 11:05 | General Progress Note ---
Assessment/Plan Problem List: (1) Acute encephalopathy ICD Codes: G93.40 - Encephalopathy, unspecified SNOMED: 89061089, 713381294 (2) Acute hepatic encephalopathy ICD Codes: K72.00 - Acute and subacute hepatic failure without coma SNOMED: 5869391, 02154402 (3) PVCs (premature ventricular contractions) ICD Codes: I49.3 - Ventricular premature depolarization SNOMED: 52050705 (4) Seizure ICD Codes: R56.9 - Seizure SNOMED: 40024264 (5) Hypertension ICD Codes: I10 - Hypertension SNOMED: 64953819 (6) Syncope ICD Codes: R55 - Syncope and collapse SNOMED: 301764289 (7) Thrombocytopenia ICD Codes: D69.6 - Thrombocytopenia SNOMED: 273270173 (8) Hypokalemia ICD Codes: E87.6 - Hypokalemia SNOMED: 39597773 Status: stable Assessment/Plan: 74-year-old female sent from nursing facility for possible seizure versus syncope. #Seizure #Syncope- less likely Admit to telemetry First troponin is negative. Serial troponins and EKG. Check magnesium. Replace electrolytes as needed TSH 2D echocardiogram Cardiology consult appreciated Seizure precautions Continue Keppra and phenytoin Carotid with stenosis. outpatient follow up #PVCs #Hypokalemia Replace K and mag as needed 2D echocardiogram #Hypertension- uncontrolled Continue amlodipine Add Hydralazine #History of right MCA stroke Continue aspirin ? Start atorvastatin #History of substance abuse #Depression Continue Lexapro #Thrombocytopenia Monitor closely VTE prophylaxis: SCD boots no heparin or Lovenox due to thrombocytopenia GI prophylaxis: Not indicated CODE STATUS: Full code. Will address again when patient oriented. disposition: Back to SNF. Friday I spent 40 minutes on this encounter. Greater than 50% spent in counseling care coordination. Time of note may not reflect time of encounter. Subjective Date patient seen: Mar 20, 2019 ROS Limited/Unobtainable: No Constitutional: Denies: no symptoms, chills, diaphoresis, fever, malaise, weakness, other HEENT: Denies: no symptoms, eye pain, blurred vision, tearing, double vision, ear pain, ear discharge, nose pain, nose congestion, throat pain, throat swelling, mouth pain, mouth swelling, other Cardiovascular: Denies: no symptoms, chest pain, edema, irregular heart rate, lightheadedness, palpitations, syncope, other Respiratory: Denies: no symptoms, cough, orthopnea, shortness of breath, SOB with excertion, SOB at rest, sputum, stridor, wheezing, other Gastrointestinal/Abdominal: Denies: no symptoms, abdomen distended, abdominal pain, black stools, tarry stools, blood in stool, constipated, diarrhea, difficulty swallowing, nausea, poor appetite, poor fluid intake, rectal bleeding , vomiting, other Genitourinary: Denies: no symptoms, burning, discharge, frequency, flank pain, hematuria, incontinence, pain, urgency, other Neurologic/Psychiatric: Denies: no symptoms, anxiety, depressed, emotional problems, headache, numbness, paresthesia, pre-existing deficit, seizure, tingling, tremors, weakness, other Endocrine: Denies: no symptoms, excessive sweating, flushing, intolerance to cold, intolerance to heat, increased hunger, increased thirst, increased urine, unexplained weight gain, unexplained weight loss, other Allergies: Coded Allergies: NO KNOWN DRUG ALLERGIES (Unverified Allergy, Unknown, 02/04/14) Subjective Alert and awake. Has no complaints. Remains seizure-free overnight. Being seen by petroleum engineer for syncope. Carotid US reviewed, needs outpatient follow up. BP running high, add Hydralazine. Tells me today is mar 20 because yesterday was the and it was her birthday. she is not oriented to time though, she is oriented to place. Objective Last 24 Hour Vital Signs Date Time Temp Pulse Resp B/P (MAP) Pulse Ox O2 Delivery O2 Flow Rate FiO2 03/20/19 09:02 62 164/86 03/20/19 09:02 62 164/86 03/20/19 08:52 62 20 98 Room Air 21 03/20/19 08:15 97.4 64 18 164/86 (112) 96 03/20/19 04:00 97.5 84 21 142/98 (113) 95 03/20/19 04:00 57 03/20/19 00:00 63 03/20/19 00:00 98.0 74 19 138/92 (107) 96 03/19/19 21:32 77 148/110 03/19/19 21:02 77 18 99 Room Air 21 03/19/19 21:00 Room Air 03/19/19 20:00 97.7 79 20 148/110 (123) 98 03/19/19 20:00 86 03/19/19 16:00 82 03/19/19 16:00 98.8 77 18 149/83 (105) 95 03/19/19 15:38 185/90 03/19/19 12:00 71 03/19/19 12:00 98.6 80 18 185/90 (121) 96 Intake and Output 03/19/19 03/20/19 19:00 07:00 # Bowel Movements 1 Laboratory Tests 03/19/19 11:00: Troponin I 0.016 03/19/19 18:50: Troponin I 0.030 03/20/19 03:16: Troponin I 0.019, White Blood Count 5.1, Red Blood Count 4.14L, Hemoglobin 12.3 , Hematocrit 36.9L, Mean Corpuscular Volume 89, Mean Corpuscular Hemoglobin 29.7 , Mean Corpuscular Hemoglobin Concent 33.3, Red Cell Distribution Width 11.0L, Platelet Count 136L, Mean Platelet Volume 9.8, Neutrophils (%) (Auto) , Lymphocytes (%) (Auto) , Monocytes (%) (Auto) , Eosinophils (%) (Auto) , Basophils (%) (Auto) , Differential Total Cells Counted 100, Neutrophils % ( Manual) 14L, Lymphocytes % (Manual) 72H, Monocytes % (Manual) 10, Eosinophils % (Manual) 4H, Basophils % (Manual) 0, Band Neutrophils 0, Platelet Estimate DecreasedL, Platelet Morphology Normal, Red Blood Cell Morphology Normal, Sodium Level 143, Potassium Level 3.4L, Chloride Level 108H, Carbon Dioxide Level 30, Anion Gap 5, Blood Urea Nitrogen 26H, Creatinine 1.1, Estimat Glomerular Filtration Rate , Glucose Level 116H, Calcium Level 10.1, Pro-B-Type Natriuretic Peptide 367H, Free Thyroxine 0.95 Height (Feet): 5 Height (Inches): 7.00 Weight (Pounds): 150 Objective HEENT: normocephalic, atraumatic, anicteric, mucous membranes moist, PERRL, EOMI Neck: non-tender, normal alignment, supple Respiratory/Chest: chest wall non-tender, lungs clear, normal breath sounds, no accessory muscle use Cardiovascular/Chest: normal peripheral pulses, normal rate, regular rhythm Abdomen: normal bowel sounds, non tender, soft, no organomegaly Extremities: normal range of motion, non-tender, normal inspection, no calf tenderness Skin Exam: normal pigmentation, warm/dry Neurologic: no motor/sensory deficits, alert, responsive, alert and oriented x3 Musculoskeletal: normal muscle bulk Martin Garcia M.D. Mar 20, 2019 11:05
--- NOTE | 2019-03-20 13:21 | Cardiac Electrophysiology PN ---
Assessment/Plan Status Narrative Severe left ICA stenosis estimated at greater than 70%. Moderate right ICA stenosis estimated at between 50 and 69%. 2 stenosis likely closer to 69% than 50%. Assessment/Plan 1. Syncope vs Seizure. No [place]. Nl EF. Ruled out for [place] Severe left ICA stenosis estimated at greater than 70%. 2. HTN On Coreg 3.125 bid, Norvasc 10 daily. Change Hydralazine to 25 bid 3. Occasional PVCs 4. Encephalopathy DW RN Subjective Subjective No CP or SOB. No Arrhythmias overnight.EF 60% Objective Last 24 Hour Vital Signs Date Time Temp Pulse Resp B/P (MAP) Pulse Ox O2 Delivery O2 Flow Rate FiO2 03/20/19 11:41 97.6 66 18 154/89 (110) 94 03/20/19 11:38 154/89 03/20/19 11:37 154/89 (110) 03/20/19 09:02 62 164/86 03/20/19 09:02 62 164/86 03/20/19 09:00 Room Air 03/20/19 08:52 62 20 98 Room Air 21 03/20/19 08:15 97.4 64 18 164/86 (112) 96 03/20/19 04:00 97.5 84 21 142/98 (113) 95 03/20/19 04:00 57 03/20/19 00:00 63 03/20/19 00:00 98.0 74 19 138/92 (107) 96 03/19/19 21:32 77 148/110 03/19/19 21:02 77 18 99 Room Air 21 03/19/19 21:00 Room Air 03/19/19 20:00 97.7 79 20 148/110 (123) 98 03/19/19 20:00 86 03/19/19 16:00 82 03/19/19 16:00 98.8 77 18 149/83 (105) 95 03/19/19 15:38 185/90 Intake and Output 03/19/19 03/20/19 19:00 07:00 # Bowel Movements 1 Laboratory Tests Test 03/19/19 18:50 03/20/19 03:16 Troponin I 0.030 ng/mL (0.000-0.056) 0.019 ng/mL (0.000-0.056) White Blood Count 5.1 K/UL (4.8-10.8) Red Blood Count 4.14 M/UL (4.20-5.40) L Hemoglobin 12.3 G/DL (12.0-16.0) Hematocrit 36.9 % (37.0-47.0) L Mean Corpuscular Volume 89 FL (80-99) Mean Corpuscular Hemoglobin 29.7 PG (27.0-31.0) Mean Corpuscular Hemoglobin Concent 33.3 G/DL (32.0-36.0) Red Cell Distribution Width 11.0 % (11.6-14.8) L Platelet Count 136 K/UL (150-450) L Mean Platelet Volume 9.8 FL (6.5-10.1) Neutrophils (%) (Auto) % (45.0-75.0) Lymphocytes (%) (Auto) % (20.0-45.0) Monocytes (%) (Auto) % (1.0-10.0) Eosinophils (%) (Auto) % (0.0-3.0) Basophils (%) (Auto) % (0.0-2.0) Differential Total Cells Counted 100 Neutrophils % (Manual) 14 % (45-75) L Lymphocytes % (Manual) 72 % (20-45) H Monocytes % (Manual) 10 % (1-10) Eosinophils % (Manual) 4 % (0-3) H Basophils % (Manual) 0 % (0-2) Band Neutrophils 0 % (0-8) Platelet Estimate Decreased L Platelet Morphology Normal Red Blood Cell Morphology Normal Sodium Level 143 MMOL/L (136-145) Potassium Level 3.4 MMOL/L (3.5-5.1) L Chloride Level 108 MMOL/L (98-107) H Carbon Dioxide Level 30 MMOL/L (21-32) Anion Gap 5 mmol/L (5-15) Blood Urea Nitrogen 26 mg/dL (7-18) H Creatinine 1.1 MG/DL (0.55-1.30) Estimat Glomerular Filtration Rate mL/min (>60) Glucose Level 116 MG/DL (74-106) H Calcium Level 10.1 MG/DL (8.5-10.1) Pro-B-Type Natriuretic Peptide 367 pg/mL (0-125) H Free Thyroxine 0.95 NG/DL (0.76-1.46) Microbiology Date/Time Source Procedure Growth Status 03/18/19 18:30 Rectum Received Objective HEENT: No JVD Respiratory/Chest: chest wall non-tender, lungs clear, normal breath sounds, no accessory muscle use Cardiovascular/Chest: normal peripheral pulses, normal rate, regular rhythm Abdomen: normal bowel sounds, non tender, soft, no organomegaly Extremities: normal range of motion, non-tender, normal inspection, no calf tenderness Skin Exam: normal pigmentation, warm/dry Bora Denis MD Mar 20, 2019 13:21
--- NOTE | 2019-03-20 18:04 | NUR ---
CASE MANAGEMENT: DC NOTE POSSIBLE DC TO [facility] RO[facility] PLEASE CALL [facility] [phone] PRIOR TO DISCHARGE FAX CLINICALS TO [phone]
--- NOTE | 2019-03-20 19:45 | NUR ---
HAND-OFF: Report given to Lionel/HERNANDEZ.
--- NOTE | 2019-03-20 19:46 | NUR ---
NURSE NOTES: Got report from Alyssa NG. Pt in stable condition. Denies any pain. No s/s of distress or discomfort noted. Pt resting in bed comfortably. Bed in low and locked position, call light within reach, bedside table within reach. Continue to monitor.
[2019-03-20] MEDS: Phenytoin 100mg cap ORAL SCH (21:29)
[2019-03-20] MEDS: HydrALAZINE 25mg tab ORAL SCH (21:29)
[2019-03-21] VITALS: BP 144/57
[2019-03-21 04:00] VITALS: BP 140/90
--- NOTE | 2019-03-21 07:15 | NUR ---
HAND-OFF: Report given to Alyssa NG.
--- NOTE | 2019-03-21 08:06 | NUR ---
NURSE NOTES: pt had breakfast already, pt sleeping in bed. court recording monitor on no signs of cardiac or respiratory distress. Bed is in lowest position and locked. Call light within reach. Will continue to follow plans of care.
[2019-03-21 09:00] VITALS: BP 187/87
[2019-03-21] MEDS: Aspirin EC 81mg tab ORAL SCH (09:47)
[2019-03-21] MEDS: HydrALAZINE 25mg tab ORAL SCH ×2 (09:50→20:57)
--- NOTE | 2019-03-21 11:29 | General Progress Note ---
Assessment/Plan Problem List: (1) Acute encephalopathy ICD Codes: G93.40 - Encephalopathy, unspecified SNOMED: 89983401, 393956325 (2) Acute hepatic encephalopathy ICD Codes: K72.00 - Acute and subacute hepatic failure without coma SNOMED: 6671595, 08295521 (3) PVCs (premature ventricular contractions) ICD Codes: I49.3 - Ventricular premature depolarization SNOMED: 75640830 (4) Seizure ICD Codes: R56.9 - Seizure SNOMED: 19316844 (5) Hypertension ICD Codes: I10 - Hypertension SNOMED: 11349874 (6) Syncope ICD Codes: R55 - Syncope and collapse SNOMED: 299069427 (7) Thrombocytopenia ICD Codes: D69.6 - Thrombocytopenia SNOMED: 611662011 (8) Hypokalemia ICD Codes: E87.6 - Hypokalemia SNOMED: 64446134 Status: stable Assessment/Plan: 74-year-old female sent from nursing facility for possible seizure versus syncope. #Seizure #Syncope- less likely Admit to telemetry First troponin is negative. Serial troponins and EKG. Check magnesium. Replace electrolytes as needed TSH 2D echocardiogram Cardiology consult appreciated Seizure precautions Continue Keppra and phenytoin Carotid with stenosis. outpatient follow up #PVCs #Hypokalemia Replace K and mag as needed, add kcl daily 2D echocardiogram reviewed #Hypertension- uncontrolled Continue amlodipine Hydralazine clonidine PRN #History of right MCA stroke #Severe left ICA stenosis estimated at greater than 70%. vascular surgery follow up cont ASA Add Lipitor #History of substance abuse #Depression Continue Lexapro #Thrombocytopenia Monitor closely VTE prophylaxis: SCD boots no heparin or Lovenox due to thrombocytopenia GI prophylaxis: Not indicated CODE STATUS: Full code. Will address again when patient oriented. disposition: Back to SNF. Friday I spent 40 minutes on this encounter. Greater than 50% spent in counseling care coordination. Time of note may not reflect time of encounter. Subjective Date patient seen: Mar 21, 2019 ROS Limited/Unobtainable: No Constitutional: Denies: no symptoms, chills, diaphoresis, fever, malaise, weakness, other HEENT: Denies: no symptoms, eye pain, blurred vision, tearing, double vision, ear pain, ear discharge, nose pain, nose congestion, throat pain, throat swelling, mouth pain, mouth swelling, other Cardiovascular: Denies: no symptoms, chest pain, edema, irregular heart rate, lightheadedness, palpitations, syncope, other Respiratory: Denies: no symptoms, cough, orthopnea, shortness of breath, SOB with excertion, SOB at rest, sputum, stridor, wheezing, other Gastrointestinal/Abdominal: Denies: no symptoms, abdomen distended, abdominal pain, black stools, tarry stools, blood in stool, constipated, diarrhea, difficulty swallowing, nausea, poor appetite, poor fluid intake, rectal bleeding , vomiting, other Genitourinary: Denies: no symptoms, burning, discharge, frequency, flank pain, hematuria, incontinence, pain, urgency, other Neurologic/Psychiatric: Denies: no symptoms, anxiety, depressed, emotional problems, headache, numbness, paresthesia, pre-existing deficit, seizure, tingling, tremors, weakness, other Endocrine: Denies: no symptoms, excessive sweating, flushing, intolerance to cold, intolerance to heat, increased hunger, increased thirst, increased urine, unexplained weight gain, unexplained weight loss, other Hematologic/Lymphatic: Denies: no symptoms, anemia, easy bleeding, easy bruising, other Allergies: Coded Allergies: NO KNOWN DRUG ALLERGIES (Unverified Allergy, Unknown, 02/04/14) Subjective Alert and awake. Has no complaints. Remains seizure-free overnight. Being seen by grubber for syncope. Carotid US reviewed, Severe left ICA stenosis estimated at greater than 70%. Moderate right ICA stenosis estimated at between 50 and 69%. 2 stenosis likely closer to 69% than 50%. BP running high, added Hydralazine, clonidine prn Objective Last 24 Hour Vital Signs Date Time Temp Pulse Resp B/P (MAP) Pulse Ox O2 Delivery O2 Flow Rate FiO2 03/21/19 09:50 187/87 03/21/19 09:50 63 187/87 03/21/19 09:49 187 03/21/19 09:40 63 20 98 Room Air 21 03/21/19 09:00 97.9 65 18 187/87 (120) 99 03/21/19 04:00 98.7 63 18 140/90 (107) 100 03/21/19 04:00 62 03/21/19 00:00 74 03/21/19 00:00 98.0 62 18 144/57 (86) 96 03/20/19 21:29 156/91 03/20/19 21:29 75 156/91 03/20/19 21:00 Room Air 03/20/19 20:02 68 20 98 Room Air 21 03/20/19 20:00 83 03/20/19 20:00 97.9 75 18 156/91 (112) 95 03/20/19 17:26 84 03/20/19 16:01 71 03/20/19 16:00 97.9 71 20 154/96 (115) 97 03/20/19 11:41 97.6 66 18 154/89 (110) 94 03/20/19 11:38 154/89 03/20/19 11:37 61 03/20/19 11:37 154/89 (110) Intake and Output 03/20/19 03/21/19 19:00 07:00 Intake Total 960 ml Balance 960 ml Intake Oral 960 ml Height (Feet): 5 Height (Inches): 7.00 Weight (Pounds): 150 Objective HEENT: normocephalic, atraumatic, anicteric, mucous membranes moist, PERRL, EOMI Neck: non-tender, normal alignment, supple Respiratory/Chest: chest wall non-tender, lungs clear, normal breath sounds, no accessory muscle use Cardiovascular/Chest: normal peripheral pulses, normal rate, regular rhythm Abdomen: normal bowel sounds, non tender, soft, no organomegaly Extremities: normal range of motion, non-tender, normal inspection, no calf tenderness Skin Exam: normal pigmentation, warm/dry Neurologic: no motor/sensory deficits, alert, responsive, alert and oriented x3 Musculoskeletal: normal muscle bulk Martin Garcia M.D. Mar 21, 2019 11:29
[2019-03-21] MEDS ORDERED: LIPITOR20 MG ORAL (11:39)
[2019-03-21] MEDS ORDERED: CLONIDINE HCL0.1 MG ORAL (11:39)
[2019-03-21] MEDS ORDERED: HYDRALAZINE HCL25 M1 ORAL (11:39)
[2019-03-21] MEDS ORDERED: K-TAB ER20 MEQ ORAL (11:39)
[2019-03-21 12:00] VITALS: BP 156/76
[2019-03-21 12:19] LABS: CHOLESTEROL 213 MG/DL (< 200); HDL CHOLESTEROL 60 MG/DL (40-60); TRIGLYCERIDES 138 MG/DL (30-150)
[2019-03-21 16:00] VITALS: BP 140/61
--- NOTE | 2019-03-21 19:15 | NUR ---
Received report from nurse Alyssa NG. Patient on bed resting and appears in no distress. Denies c/o pain at this time. Made aware of her plan of care. Bed at its lowest and locked.
--- NOTE | 2019-03-21 19:16 | NUR ---
HAND-OFF: Report given to charge nurse/Octavio, pt in stable condition plans to DC tomorrow.
[2019-03-21 20:00] VITALS: BP 146/103
[2019-03-21] MEDS: Phenytoin 100mg cap ORAL SCH (20:59)
[2019-03-21] MEDS ORDERED: Atorvastatin 20mg tab ORAL SCH (21:00)
[2019-03-22] VITALS: BP 137/69
[2019-03-22 04:00] VITALS: BP 130/85
--- NOTE | 2019-03-22 07:30 | Consultation ---
DATE OF CONSULTATION: 03/19/2019 CARDIOLOGY CONSULTATION CONSULTING PHYSICIAN: Bora Denis M.D. REFERRING PHYSICIAN: Savannha Leyva M.D. REASON FOR CONSULTATION: Syncope in a patient with history of hypertension. HISTORY OF PRESENT ILLNESS: The patient is a 74-year-old lady with history of hypertension, history of COPD, and recent UTI, who was brought to the emergency room after a syncopal episode that she had while she was sitting in the chair at the nursing facility. The patient was apparently in a wheelchair, witnessed by the nursing staff that she was altered for 5 minutes, more than usual. The patient was then brought to the emergency room and underwent CT of the brain that showed no acute findings. There is report of but no detail of which is available. REVIEW OF SYSTEMS: Review of systems was negative other than what was mentioned in HPI. PAST MEDICAL HISTORY: As mentioned above. FAMILY HISTORY: Noncontributory. SOCIAL HISTORY: She lives in a alf. Does not smoke or drink alcohol. PHYSICAL EXAMINATION: VITAL SIGNS: Show blood pressure of 180/96, pulse 84, respirations 18, and temperature 96.7. HEAD AND NECK: Showed no JVD or carotid bruits. LUNGS: Clear. CARDIOVASCULAR: Shows regular S1 and S2 with no gallop or murmur. ABDOMEN: Soft. EXTREMITIES: No pitting edema. LABORATORY AND DIAGNOSTIC DATA: Labs show white count of 4.6, hemoglobin 12.7, hematocrit 37 and platelet count 142,000. Sodium is 141, potassium 3.9, BUN of 22, creatinine 1.2, and glucose of 125. Troponin is negative. Dilantin level is 4.8. ASSESSMENT AND PLAN: 1. Episode of altered level of consciousness versus syncope. The first troponin is negative. We will completely rule out AK protocol. EKG showed no acute findings. Repeat EKG and echocardiogram for further evaluation. 2. Accelerated hypertension with blood pressure in the 180s. The patient is on Norvasc 10 mg daily and Coreg 3.125 mg b.i.d. I will add p.r.n. clonidine to her medical regimen. 3. Seizure disorder, on Keppra and Dilantin. 4. History of UTI. urinalysis negative. Thank you very much, , for allowing me to participate in the care of this patient. Please do not hesitate to contact me for any questions regarding my evaluation. Bora Denis M.D. DR: COCO JOB#: [id number] CC:
--- NOTE | 2019-03-22 07:48 | NUR ---
HAND-OFF: Report given to nurse Karissa NG.PT stable. .
[2019-03-22 08:00] VITALS: BP 148/79
--- NOTE | 2019-03-22 08:00 | NUR ---
NURSE NOTES: Patient stable AOx4 with no complaints and no s/sx of distress. RR even and unlabored on RA. Patient to be discharged today. IV and surveillance monitor d/ch. Side rails upx2. Call light within reach. Bed low and locked. Will continue to monitor.
[2019-03-22] MEDS: Aspirin EC 81mg tab ORAL SCH (08:36)
[2019-03-22] MEDS: HydrALAZINE 25mg tab ORAL SCH (08:36)
--- NOTE | 2019-03-22 08:54 | NUR ---
DISCHARGE PLAN FAXED CLINICALS TO [facility] T: [phone] F: [phone]
--- NOTE | 2019-03-22 09:02 | NUR ---
DISCHARGE PLANNED PATIENT IS DISCHARGING TO [facility] ROOM [facility]A SKILLED T: [phone] FOR NURSE TO NURSE REPORT [facility] HAS BEEN ARRANGED FOR 1030 NURSING SERVICE ADMINISTRATOR CALLED [facility]S [facility] [phone] ~ NUMBER NOT IN SERVICE CALLED [facility] [phone] ~ NO ANSWER AND NO VOICEMAIL
--- NOTE | 2019-03-22 09:33 | Cardiac Electrophysiology PN ---
Assessment/Plan Status Narrative Severe left ICA stenosis estimated at greater than 70%. Moderate right ICA stenosis estimated at between 50 and 69%. 2 stenosis likely closer to 69% than 50%. Assessment/Plan 1. Syncope vs Seizure. No [place]. Nl EF. Ruled out for [place] Severe left ICA stenosis estimated at greater than 70%. FU Neurology/Vasc surgery 2. HTN On Coreg 3.125 bid, Norvasc 10 daily and Hydralazine 25 bid 3. Occasional PVCs 4. Encephalopathy DW RN Subjective Subjective No CP or SOB. No Arrhythmias overnight.EF 60%. DC planning today Objective Last 24 Hour Vital Signs Date Time Temp Pulse Resp B/P (MAP) Pulse Ox O2 Delivery O2 Flow Rate FiO2 03/22/19 08:36 148/79 03/22/19 08:36 65 148/79 03/22/19 08:35 65 148/79 03/22/19 08:00 97.5 65 20 148/79 (102) 98 03/22/19 04:00 61 03/22/19 04:00 97.3 81 20 130/85 (100) 98 03/22/19 00:00 97.8 78 19 137/69 (91) 98 03/22/19 00:00 74 03/21/19 21:00 Room Air 03/21/19 20:58 69 146/103 03/21/19 20:57 146/103 03/21/19 20:03 62 20 97 Room Air 21 03/21/19 20:00 80 03/21/19 20:00 97.6 69 21 146/103 (117) 94 03/21/19 16:00 98.7 61 18 140/61 (87) 98 03/21/19 16:00 75 03/21/19 12:00 98.1 64 19 156/76 (102) 97 03/21/19 12:00 66 03/21/19 09:50 187/87 03/21/19 09:50 63 187/87 03/21/19 09:49 187 03/21/19 09:40 63 20 98 Room Air 21 Intake and Output 03/21/19 03/22/19 18:59 06:59 # Voids 3 Laboratory Tests Test 03/21/19 11:37 Triglycerides Level 138 MG/DL (30-150) Cholesterol Level 213 MG/DL (< 200) H LDL Cholesterol 122 mg/dL (<100) H HDL Cholesterol 60 MG/DL (40-60) Cholesterol/HDL Ratio 3.6 (3.3-4.4) Objective HEENT: No JVD Respiratory/Chest: Clear Cardiovascular/Chest: normal peripheral pulses, normal rate, regular rhythm Abdomen: normal bowel sounds, non tender, soft, no organomegaly Extremities: normal range of motion, non-tender, normal inspection, no calf tenderness Skin Exam: normal pigmentation, warm/dry Bora Denis MD Mar 22, 2019 09:33
--- NOTE | 2019-03-22 09:43 | Discharge Summary ---
Discharge Summary Hospital Course Date of Admission Mar 18, 2019 at 16:44 Date of Discharge 2019 Admitting Diagnosis syncope,Arrhythmia,? seizure HPI Polly Perry is a 74 year old female who was admitted on Mar 18, 2019 at 16:44 for Syncope/Arrhythmia Consultations Cardiology Hospital Course 74-year-old female sent from nursing facility for possible seizure versus syncope. #Seizure #Syncope- less likely Admit to telemetry First troponin is negative. Serial troponins and EKG. Check magnesium. Replace electrolytes as needed TSH normal 2D echocardiogram, EF normal Cardiology consult appreciated Seizure precautions Continue Keppra and phenytoin Carotid with stenosis. outpatient follow up #PVCs #Hypokalemia Replace K and mag as needed, add kcl daily 2D echocardiogram reviewed #Hypertension- uncontrolled Continue amlodipine Hydralazine 25 BID clonidine PRN #History of right MCA stroke #Severe left ICA stenosis estimated at greater than 70%. vascular surgery follow up cont ASA Add Lipitor #History of substance abuse #Depression Continue Lexapro #Thrombocytopenia Monitor closely VTE prophylaxis: SCD boots no heparin or Lovenox due to thrombocytopenia GI prophylaxis: Not indicated CODE STATUS: Full code. Will address again when patient oriented. disposition: Back to SNF. Friday today on exam she is alert and oriented x3. Excited for discharge. No complaints I spent 40 minutes on this encounter. Greater than 50% spent in counseling care coordination. Time of note may not reflect time of encounter. Discharge Medications New Medications: Atorvastatin Calcium* (Lipitor*) 20 Mg Tablet 20 MG ORAL BEDTIME for 10 Days, #10 TAB Clonidine Hcl (Clonidine Hcl) 0.1 Mg Tablet 0.1 MG ORAL Q4H PRN for 10 Days, #20 TAB PRN for SBP>170 Hydralazine Hcl* (Hydralazine Hcl*) 25 Mg Tablet 50 MG ORAL Q8HR for 10 Days, #30 TAB Potassium Chloride (K-Tab ER) 20 Meq Tablet.er 40 MEQ ORAL DAILY for 10 Days, #10 TAB Continued Medications: Amlodipine Besylate* (Amlodipine Besylate*) 10 Mg Tablet 10 MG ORAL DAILY for htn, TAB (This prescription has been renewed) Aspirin (Aspirin EC) 81 Mg Tablet.dr 81 MG ORAL DAILY, TAB (This prescription has been renewed) Carvedilol* (Carvedilol*) 3.125 Mg Tablet 3.125 MG ORAL EVERY 12 HOURS, TAB (This prescription has been renewed) Escitalopram Oxalate* (Lexapro*) 10 Mg Tablet 10 MG ORAL DAILY, TAB (This prescription has been renewed) Levetiracetam (Keppra) 500 Mg Tablet 500 MG ORAL EVERY 12 HOURS, #60 TAB 0 Refills Mirtazapine* (Remeron*) 15 Mg Tablet 15 MG ORAL BEDTIME, TAB (This prescription has been renewed) Phenytoin (Dilantin) 50 Mg Tab.chew 300 MG ORAL QHS, #90 TAB 0 Refills (This prescription has been renewed) Discontinued Medications: Amlodipine Besylate* (Amlodipine Besylate*) 10 Mg Tablet 10 MG ORAL DAILY, TAB Cephalexin* (Keflex*) 500 Mg Capsule 500 MG ORAL EVERY 6 HOURS for 7 Days, #28 CAP Hydralazine Hcl* (Hydralazine Hcl*) 100 Mg Tablet 100 MG ORAL Q8HR, TAB Hydralazine Hcl* (Hydralazine Hcl*) 100 Mg Tablet 100 MG ORAL BID for htn, TAB Labetalol HCl (Labetalol HCl) 300 Mg Tablet 300 MG ORAL EVERY 12 HOURS for htn, TAB Labetalol Hcl* (Normodyne*) 200 Mg Tablet 200 MG ORAL QHS, TAB Mirtazapine* (Mirtazapine*) 7.5 Mg Tablet 7.5 MG ORAL BEDTIME for depression, TAB Nitrofurantoin Monohyd/M-Cryst* (Macrobid 100 Mg*) 100 Mg Capsule 100 MG ORAL EVERY 12 HOURS for 7 Days, #14 CAP Phenytoin Sodium Extended* (Dilantin*) 100 Mg Capsule 300 MG ORAL BEDTIME for sz, #90 CAP Discharge Condition Upon Discharge: stable Discharge Vital Signs Last Vital Signs Date Time Temp Pulse Resp B/P (MAP) Pulse Ox O2 Delivery O2 Flow Rate FiO2 03/22/19 08:36 148/79 03/22/19 08:36 65 03/22/19 08:00 97.5 20 98 03/21/19 21:00 Room Air 03/21/19 20:03 21 Discharge Disposition Patient was discharged to [facility] Discharge Diagnoses: (1) Seizure (2) PVCs (premature ventricular contractions) (3) Hypertension (4) Acute encephalopathy (5) Hypokalemia (6) Thrombocytopenia Martin Garcia M.D. Mar 22, 2019 09:43
[2019-03-22 12:00] VITALS: BP 164/92
--- NOTE | 2019-03-22 12:00 | NUR ---
NURSE NOTES: BP 164/92. [facility] at bedside but cannot take patient per Rose Galarza. Clonidine PRN given.
[2019-03-22 12:06] VITALS: BP 164/92
--- NOTE | 2019-03-22 13:01 | NUR ---
NURSE NOTES: Patient stable AOx4 with no complaints and no s/sx of distress. RR even and unlabored on RA. Patient to be discharged today
[2019-03-22] MEDS ORDERED: 1/2 NS 1000ml IV ONE (13:44)
--- NOTE | 2019-03-22 13:45 | NUR ---
NURSE NOTES: Patient discharged. All belongings with patient including dentures, jewelry and [place]. Packet given to ambulance personnel. Report given to Pamela at [facility].
== END 2019-03-22 13:45 | DRG 100 ==
LOC: EDBD 11:23 → EDUNIT# 11:23 → EMR 12:12 → 2E 16:44 → EDBEDREQ 17:34 → 2E 18:32
DX: G40.909 Epilepsy, unspecified, not intractable, without status epilepticus (principal); K72.00 Acute and subacute hepatic failure without coma; G93.40 Encephalopathy, unspecified; R55 Syncope and collapse; I10 Essential (primary) hypertension; D69.6 Thrombocytopenia, unspecified; I49.3 Ventricular premature depolarization; Z86.73 Personal history of transient ischemic attack (TIA), and cerebral infarction without residual deficits; E87.6 Hypokalemia; F19.11 Other psychoactive substance abuse, in remission; I65.23 Occlusion and stenosis of bilateral carotid arteries; F32.9 Major depressive disorder, single episode, unspecified; Z79.82 Long term (current) use of aspirin
CPT/HCPCS: 36415; 70450; 71045; 80048; 80053; 80061; 80185; 80299; 81003; 83880; 84439; 84443; 84484; 85007; 85025; 87081; 93005; 93306; 93880; 94664; 96360; 99285; J7030; J8499

== ENCOUNTER 2019-04-19 11:39 | Emergency (ER) | payer MEDICARE, MEDICAID ==
[~2019-04-19] VITALS: Ht 165.1 cm; Wt 59.0 kg
[~2019-04-19 11:39] MED LIST changes: +CLONIDINE HCL0.1 MG ORAL; +DILANTIN100 MG ORAL; +HYDRALAZINE HCL25 M1 ORAL; +K-TAB ER20 MEQ ORAL; +LIPITOR20 MG ORAL; +NORMODYNE300 MG ORAL
--- NOTE | 2019-04-19 11:48 | NUR ---
ED Nurse Note: pt arrivd with [facility] due to auditory hallucination. pt states she hears people talking but they are not talk to her "i just head chatter". pt denies harm to self and others.
[2019-04-19 11:49] VITALS: BP 187/85
--- NOTE | 2019-04-19 12:24 | NUR ---
ED Nurse Note: blood collected and sent to lab
--- NOTE | 2019-04-19 12:41 | NUR ---
ED Nurse Note: PT unable to urinate at this time, but is aware urine is needed and will notify staff.
--- NOTE | 2019-04-19 12:47 | Emergency Room Report ---
History of Present Illness General Chief Complaint: Behavioral Complaint Source: Patient Present Illness HPI 74-year-old female history of anxiety, depression, hypertension presented for evaluation of auditory hallucinations. Apparently this is been a chronic issue. She denies any suicidal or homicidal ideation. She denies any fevers. She denies any pain. She is an active smoker and uses marijuana as well. She currently lives in a prison facility. Allergies: Coded Allergies: NO KNOWN DRUG ALLERGIES (Unverified Allergy, Unknown, 02/04/14) Patient History Past Medical History: see triage record Reviewed Nursing Documentation: PMH: Agreed; PSxH: Agreed Nursing Documentation-PMH Past Medical History: No History, Except For Hx Hypertension: Yes Hx COPD: Yes Hx Cancer: No Hx Gastrointestinal Problems: No Hx Neurological Problems: Yes Hx Seizures: Yes Review of Systems All Other Systems: negative except mentioned in HPI Physical Exam Vital Signs Date Time Temp Pulse Resp B/P (MAP) Pulse Ox O2 Delivery O2 Flow Rate FiO2 04/19/19 11:40 98.2 107 17 187/85 (119) 95 Room Air Sp02 EP Interpretation: reviewed, normal General Appearance: well appearing, no apparent distress Head: normocephalic, atraumatic Eyes: bilateral eye PERRL, bilateral eye EOMI ENT: hearing grossly normal, moist mucus membranes Neck: full range of motion, supple Respiratory: lungs clear, normal breath sounds, no rhonchi, no respiratory distress, no retraction, no wheezing Cardiovascular #1: normal peripheral pulses, regular rate, rhythm, no murmur Gastrointestinal: non tender, soft, non-distended, no guarding Neurologic: alert, oriented x3, no focal defects Psychiatric: mood/affect normal, no suicidal/homicidal ideation, no delusions Skin: normal color, warm/dry Medical Decision Making Diagnostic Impression: Primary Impression: Auditory hallucination ER Course However he was on vacation. Patient currently taking Lexapro in addition to sleep patient presented for reported auditory hallucinations. We will send basic laboratory studies. Patient currently takes Lexapro. She is currently lives in a prison facility. She has a history of marijuana abuse. She denied any suicidal homicidal ideations. Not meeting 5150 criteria at this time. I did attempt to contact patient's primary doctor, Dr. Winchester to discuss the case aids. I recommended continuing her current medication and continued outpatient follow-up. Again she does not meet 5150 criteria. She was nontoxic- appearing. She was no acute distress. Will be discharged back to prison facility. Laboratory Tests Test 04/19/19 12:23 White Blood Count 10.0 K/UL (4.8-10.8) Red Blood Count 4.90 M/UL (4.20-5.40) Hemoglobin 14.3 G/DL (12.0-16.0) Hematocrit 42.8 % (37.0-47.0) Mean Corpuscular Volume 87 FL (80-99) Mean Corpuscular Hemoglobin 29.3 PG (27.0-31.0) Mean Corpuscular Hemoglobin Concent 33.5 G/DL (32.0-36.0) Red Cell Distribution Width 10.2 % (11.6-14.8) L Platelet Count 185 K/UL (150-450) Mean Platelet Volume 11.4 FL (6.5-10.1) H Neutrophils (%) (Auto) 55.1 % (45.0-75.0) Lymphocytes (%) (Auto) 38.4 % (20.0-45.0) Monocytes (%) (Auto) 4.2 % (1.0-10.0) Eosinophils (%) (Auto) 0.7 % (0.0-3.0) Basophils (%) (Auto) 1.7 % (0.0-2.0) Sodium Level 133 MMOL/L (136-145) L Potassium Level 5.0 MMOL/L (3.5-5.1) Chloride Level 102 MMOL/L (98-107) Carbon Dioxide Level 21 MMOL/L (21-32) Anion Gap 10 mmol/L (5-15) Blood Urea Nitrogen 15 mg/dL (7-18) Creatinine 0.9 MG/DL (0.55-1.30) Estimate Glomerular Filtration Rate > 60 mL/min (>60) Glucose Level 159 MG/DL (74-106) H Calcium Level 9.9 MG/DL (8.5-10.1) Total Bilirubin 0.3 MG/DL (0.2-1.0) Aspartate Amino Transferase (AST) 39 U/L (15-37) H Alanine Aminotransferase (ALT) 30 U/L (12-78) Alkaline Phosphatase 100 U/L (46-116) Total Protein 8.8 G/DL (6.4-8.2) H Albumin 3.7 G/DL (3.4-5.0) Globulin 5.1 g/dL Albumin/Globulin Ratio 0.7 (1.0-2.7) L Last Vital Signs Date Time Temp Pulse Resp B/P (MAP) Pulse Ox O2 Delivery O2 Flow Rate FiO2 04/19/19 11:49 107 17 Room Air 04/19/19 11:49 98.2 187/85 95 Disposition: XFER SNF Condition: Stable Additional Instructions: Plan is to continue current medications and follow-up as an outpatient with her primary physician. Colt Corea M.D. Apr 19, 2019 12:47
--- NOTE | 2019-04-19 12:50 | NUR ---
ED Nurse Note: Report given to HERNANDEZ Cohen. Endorsed plan of care
[2019-04-19 13:06] LABS: ANION GAP 10 mmol/L (5-15); BASOPHILS % (AUTO) 1.7 % (0.0-2.0); BLOOD UREA NITROGEN 15 mg/dL (7-18); CALCIUM 9.9 MG/DL (8.5-10.1); CARBON DIOXIDE 21 MMOL/L (21-32); CHLORIDE 102 MMOL/L (98-107); CREATININE 0.9 MG/DL (0.55-1.30); EOSINOPHILS % (AUTO) 0.7 % (0.0-3.0); HEMATOCRIT 42.8 % (37.0-47.0); HEMOGLOBIN 14.3 G/DL (12.0-16.0); LYMPHOCYTES % (AUTO) 38.4 % (20.0-45.0); MEAN CORPUSCULAR VOLUME 87 FL (80-99); MONOCYTES % (AUTO) 4.2 % (1.0-10.0); NEUTROPHILS % (AUTO) 55.1 % (45.0-75.0); PLATELET COUNT 185 K/UL (150-450); RED CELL DISTRIBUTION WIDTH 10.2 % (11.6-14.8); SODIUM 133 MMOL/L (136-145)
[2019-04-19 13:11] LABS: ALANINE AMINOTRANSFERASE 30 U/L (12-78); ALBUMIN 3.7 G/DL (3.4-5.0); ALBUMIN/GLOBULIN RATIO 0.7 (1.0-2.7); ALKALINE PHOSPHATASE 100 U/L (46-116); ASPARTATE AMINO TRANSFERASE 39 U/L (15-37); BILIRUBIN,TOTAL 0.3 MG/DL (0.2-1.0)
[2019-04-19 13:15] VITALS: BP_SYST 162; BP_SYST 179; BP_DIAS 79; BP_DIAS 99
--- NOTE | 2019-04-19 13:15 | NUR ---
ED Nurse Note: pt resting in bed, no NAD noted. vss.
--- NOTE | 2019-04-19 13:50 | NUR ---
ED Nurse Note: SPOKE WITH SRINATH FROM [facility]. AWARE PT WILL RETURN
--- NOTE | 2019-04-19 14:20 | NUR ---
ED Nurse Note: pt attempting to obtain urine sample. pt refuses in and out cath
--- NOTE | 2019-04-19 14:45 | NUR ---
ED Nurse Note: [facility] at bedside, preparig to transport pt. vss. pt is aox4, room air, SR. pt show no acute distress. pt has all belongings. Addendum: 04/19/19 at 1547 by PDELEON ED Nurse Note: [facility] at bedside, preparig to transport pt. pt is aox4, room air, SR. pt show no acute distress. pt has all belongings. * blood pressure to high. unable to transfer safely
[2019-04-19] MEDS ORDERED: cloNIDine 0.2mg Tab ONE (15:06)
[2019-04-19] MEDS ORDERED: cloNIDine 0.2mg Tab ORAL ONE (15:15)
[2019-04-19 15:53] VITALS: BP 190/110
--- NOTE | 2019-04-19 15:54 | NUR ---
ED Nurse Note: Informed ERMD that pt BP increased, waiting for further orders.
[2019-04-19 17:17] VITALS: BP 140/76
--- NOTE | 2019-04-19 17:18 | NUR ---
ED Nurse Note: Pt sleeping in bed
--- NOTE | 2019-04-19 19:10 | NUR ---
ED Nurse Note: Report received from HERNANDEZ King. Awaiting on new transport back to facility at this time. Pt sleeping. No acute distress noted.
[2019-04-19 19:55] VITALS: BP 98/60
[2019-04-19 20:30] VITALS: BP 107/68
--- NOTE | 2019-04-19 20:30 | NUR ---
ED Nurse Note: Pt stable for transport back to facility at this time. Pt BP is stable at 107/68. Pt is in no acute distress. Pt being transported via gurney by [facility]. Pt belongings sent with pt.
--- NOTE | 2019-04-19 20:30 | NUR ---
ED Nurse Note: Pt IV line removed without complications prior to transport by [facility].
== END 2019-04-19 20:50 ==
LOC: EDBD 11:39 → EMR 13:26
DX: R44.0 Auditory hallucinations (principal); F41.9 Anxiety disorder, unspecified; F32.9 Major depressive disorder, single episode, unspecified; I10 Essential (primary) hypertension; J44.9 Chronic obstructive pulmonary disease, unspecified; G40.909 Epilepsy, unspecified, not intractable, without status epilepticus; F17.200 Nicotine dependence, unspecified, uncomplicated; F12.90 Cannabis use, unspecified, uncomplicated
CPT/HCPCS: 36415; 80053; 85025; 96374; 99284; J0360

== ENCOUNTER 2019-10-19 14:21 | Emergency (ER) | payer MEDICARE, MEDICAID ==
[~2019-10-19] VITALS: Ht 165.1 cm; Wt 59.0 kg
[2019-10-19 14:24] VITALS: BP 172/90
--- NOTE | 2019-10-19 14:24 | NUR ---
ED Nurse Note: Pt JORDY FRENCH from [facility] c/o left flank pain onset last night. Denies dysuria/ hematuria. AAOx4, verbally responsive. No SOB, on room air. ERMD at bedside.
[2019-10-19] MEDS ORDERED: fentaNYL 100 mcg/2 mL IV ONE ×2 (14:30→20:00)
--- NOTE | 2019-10-19 14:39 | Emergency Room Report ---
History of Present Illness General Chief Complaint: Pain Source: Patient, EMS Present Illness HPI Patient is a 74-year-old female who presents to the ER from her extended care facility by EMS for left upper quadrant and flank pain. Patient states the pain started last night has been progressively been getting worse. She denies any fever or chills. She denies any chest pain or shortness of breath. She denies any cough. She denies any nausea or vomiting. She denies any dysuria or hematuria. She denies any history of similar symptoms in the past. Patient took Tylenol prior to arrival with minimal pain relief. Allergies: Coded Allergies: NO KNOWN DRUG ALLERGIES (Unverified Allergy, Unknown, 02/04/14) COVID-19 Screening Contact w/high risk pt: No Experienced COVID-19 symptoms?: No COVID-19 Testing performed BROOM BUILDER: No Patient History Reviewed Nursing Documentation: PMH: Agreed; PSxH: Agreed Nursing Documentation-PMH Hx Hypertension: Yes Hx COPD: Yes Hx Cancer: No Hx Gastrointestinal Problems: No Hx Neurological Problems: Yes Hx Seizures: Yes Review of Systems All Other Systems: negative except mentioned in HPI Physical Exam Vital Signs Date Time Temp Pulse Resp B/P (MAP) Pulse Ox O2 Delivery O2 Flow Rate FiO2 10/19/19 14:23 99.0 69 19 172/90 (117) 95 Room Air Sp02 EP Interpretation: reviewed, normal General Appearance: alert, GCS 15, non-toxic, mild distress Head: normocephalic, atraumatic Eyes: bilateral eye normal inspection, bilateral eye PERRL ENT: hearing grossly normal, normal pharynx, no angioedema, normal voice Neck: full range of motion, supple/symm/no masses Respiratory: chest non-tender, lungs clear, normal breath sounds, speaking full sentences Cardiovascular #1: regular rate, rhythm, no edema Gastrointestinal: no guarding, no rebound, other - Left upper quadrant pain Rectal: deferred Genitourinary: CVA tenderness (L) Musculoskeletal: normal range of motion Neurologic: postpartum rn III-XII nml as tested, oriented x3 Psychiatric: no suicidal/homicidal ideation Skin: no rash Lymphatic: no adenopathy Medical Decision Making Diagnostic Impression: Primary Impression: Flank pain ER Course Patient's ER work-up demonstrates no significant acute abnormalities. This could be neuropathic pain prior to onset of shingles rash. I told the patient to keep an eye out for any development of rash. Patient given IV fentanyl on reevaluation her pain has resolved. After discussing risks and benefits of further diagnostics, treatment plans, as well as indications for and risks of admission, the patient is agreeable to being discharged home. I have explained that their evaluation and treatment in the emergency department today is an important step towards them achieving better health but that their evaluation today is not intended to replace further evaluation and treatment by a physician in their local clinic. I have explained that while the current findings suggest no immediate life threatening emergency they will require further evaluation and treatment by a physician of their choice in their area. They understand that it will be necessary for them to review the final reports of their ED visit with their clinic physician. We have reviewed indications for return to the Emergency Department. I have explained that additional time may need to pass and/or additional testing as an outpatient may be necessary before a definitive diagnosis can be made. They tell me they are willing to follow up as instructed within the timeframe I recommend. They appear to understand what we discussed. Additionally they understand that if they are unable to be seen by an outpatient physician they are welcome, and in fact should, return to the Emergency Department for a repeat evaluation. The patient is stable at time of discharge. Laboratory Tests Test 10/19/19 14:51 White Blood Count 5.7 K/UL (4.8-10.8) Red Blood Count 4.72 M/UL (4.20-5.40) Hemoglobin 13.5 G/DL (12.0-16.0) Hematocrit 42.5 % (37.0-47.0) Mean Corpuscular Volume 90 FL (80-99) Mean Corpuscular Hemoglobin 28.6 PG (27.0-31.0) Mean Corpuscular Hemoglobin Concent 31.7 G/DL (32.0-36.0) L Red Cell Distribution Width 12.0 % (11.6-14.8) Platelet Count 114 K/UL (150-450) L Mean Platelet Volume 13.2 FL (6.5-10.1) H Neutrophils (%) (Auto) % (45.0-75.0) Lymphocytes (%) (Auto) % (20.0-45.0) Monocytes (%) (Auto) % (1.0-10.0) Eosinophils (%) (Auto) % (0.0-3.0) Basophils (%) (Auto) % (0.0-2.0) Differential Total Cells Counted 100 Neutrophils % (Manual) 34 % (45-75) L Lymphocytes % (Manual) 55 % (20-45) H Monocytes % (Manual) 9 % (1-10) Eosinophils % (Manual) 2 % (0-3) Basophils % (Manual) 0 % (0-2) Band Neutrophils 0 % (0-8) Platelet Estimate Decreased L Platelet Morphology Normal Red Blood Cell Morphology Normal Prothrombin Time 11.6 SEC (9.30-11.50) H Prothrombin Time INR 1.1 (0.9-1.1) Activated Partial Thromboplast Time 29 SEC (23-33) Urine Color Yellow Urine Appearance Slightly cloudy Urine pH 7 (4.5-8.0) Urine Specific [place] 1.010 (1.005-1.035) Urine Protein Negative (NEGATIVE) Urine Glucose (UA) Negative (NEGATIVE) Urine Ketones Negative (NEGATIVE) Urine Blood Negative (NEGATIVE) Urine Nitrite Negative (NEGATIVE) Urine Bilirubin Negative (NEGATIVE) Urine Urobilinogen Normal MG/DL (0.0-1.0) Urine Leukocyte Esterase Negative (NEGATIVE) Urine RBC 0-2 /HPF (0 - 2) Urine WBC 2-4 /HPF (0 - 2) Urine Squamous Epithelial Cells Occasional /LPF Urine Bacteria Many /HPF (NONE) H Sodium Level 139 MMOL/L (136-145) Potassium Level 4.7 MMOL/L (3.5-5.1) Chloride Level 106 MMOL/L (98-107) Carbon Dioxide Level 28 MMOL/L (21-32) Anion Gap 5 mmol/L (5-15) Blood Urea Nitrogen 20 mg/dL (7-18) H Creatinine 1.1 MG/DL (0.55-1.30) Estimated Glomerular Filtration Rate 59.0 mL/min (>60) Glucose Level 93 MG/DL (74-106) Lactic Acid Level 0.60 mmol/L (0.4-2.0) Calcium Level 9.7 MG/DL (8.5-10.1) Magnesium Level 2.2 MG/DL (1.8-2.4) Total Bilirubin 0.3 MG/DL (0.2-1.0) Aspartate Amino Transferase (AST) 33 U/L (15-37) Alanine Aminotransferase (ALT) 37 U/L (12-78) Alkaline Phosphatase 90 U/L (46-116) Troponin I 0.000 ng/mL (0.000-0.056) Total Protein 8.1 G/DL (6.4-8.2) Albumin 3.5 G/DL (3.4-5.0) Globulin 4.6 g/dL Albumin/Globulin Ratio 0.8 (1.0-2.7) L Lipase 267 U/L (73-393) Microbiology Date/Time Source Procedure Growth Status 10/19/19 14:51 Nasopharynx SARS-CoV-2 RdRp Gene Assay - Final Complete EKG Diagnostic Results EKG Time: 15:25 EP Interpretation: Paulette Cespedes MD Rate: bradycardiac - 58 bpm Rhythm: other - Sinus bradycardia ST Segments: no acute changes ASA given to the pt in ED: No Rhythm Strip Diag. Results Rhythm Strip Time: 15:25 EP Interpretation: yes - Paulette Cespedes MD Rate: 60 bpm Rhythm: NSR, no PVC's, no ectopy Chest X-Ray Diagnostic Results Chest X-Ray Diagnostic Results : Chest X-Ray Ordered: Yes # of Views/Limited/Complete: 1 View Indication: Other - Flank pain EP Interpretation: Yes Interpretation: no consolidation, no effusion, no pneumothorax, no acute cardiopulmonary disease Impression: No acute disease Electronically Signed by: Paulette Cespedes MD Last Vital Signs Date Time Temp Pulse Resp B/P (MAP) Pulse Ox O2 Delivery O2 Flow Rate FiO2 10/19/19 14:23 99.0 69 19 172/90 (117) 95 Room Air Disposition: SNF Condition: Improved Scripts Hydrocodone Bit/Acetaminophen 5-325* (NORCO 5-325 TABLET*) 1 Each Tablet 1 TAB ORAL Q6H PRN for FOR PAIN, #10 TAB 0 Refills Prov: Paulette Cespedes M.D. 10/19/19 Additional Instructions: The patient was provided with discharge instructions, notified to follow-up with a primary care doctor and or specialist in the next 24-48 hours, and to return to the ED if they have worsening of their symptoms. Please note that this report is being documented using [employer] technology. This can lead to erroneous entry secondary to incorrect interpretation by the dictating instrument. Paulette Cespedes M.D. Oct 19, 2019 14:39
--- NOTE | 2019-10-19 14:51 | NUR ---
ED Nurse Note: IV line established. Blood, urine and Covid swab sent to lab.
--- NOTE | 2019-10-19 15:05 | NUR ---
ED Nurse Note: Xray at bedside.
[2019-10-19 15:17] LABS: APPEARANCE,URINE SLIGHTLY CLOUDY; BILIRUBIN, URINE NEGATIVE (NEGATIVE); COLOR,URINE YELLOW; GLUCOSE, URINE (UA) NEGATIVE (NEGATIVE); KETONES,URINE NEGATIVE (NEGATIVE); LEUKOCYTE ESTERASE ,URINE NEGATIVE (NEGATIVE); NITRITE,URINE NEGATIVE (NEGATIVE); PH,URINE 7 (4.5-8.0); PROTEIN,URINE NEGATIVE (NEGATIVE); UROBILINOGEN,URINE NORMAL MG/DL (0.0-1.0)
[2019-10-19 15:24] LABS: HEMATOCRIT 42.5 % (37.0-47.0); HEMOGLOBIN 13.5 G/DL (12.0-16.0); MEAN CORPUSCULAR VOLUME 90 FL (80-99); PLATELET COUNT 114 K/UL (150-450); RED BLOOD COUNT 4.72 M/UL (4.20-5.40); WHITE BLOOD COUNT 5.7 K/UL (4.8-10.8)
[2019-10-19 15:30] LABS: INR 1.1 (0.9-1.1)
[2019-10-19] MEDS ORDERED: PRAVASTATIN SOD20 M1 ORAL (15:30)
[2019-10-19] MEDS ORDERED: VITAMIN D350 MCG PO (15:30)
[2019-10-19] MEDS ORDERED: HYDRALAZINE HC100 MG ORAL (15:30)
[2019-10-19] MEDS ORDERED: PHENYTOIN100 MG/4 M ORAL (15:30)
[2019-10-19 15:31] LABS: ANION GAP 5 mmol/L (5-15); BLOOD UREA NITROGEN 20 mg/dL (7-18); CALCIUM 9.7 MG/DL (8.5-10.1); CARBON DIOXIDE 28 MMOL/L (21-32); CHLORIDE 106 MMOL/L (98-107); CREATININE 1.1 MG/DL (0.55-1.30); POTASSIUM 4.7 MMOL/L (3.5-5.1); SODIUM 139 MMOL/L (136-145)
[2019-10-19 15:35] LABS: ALANINE AMINOTRANSFERASE 37 U/L (12-78); ALBUMIN 3.5 G/DL (3.4-5.0); ALBUMIN/GLOBULIN RATIO 0.8 (1.0-2.7); ALKALINE PHOSPHATASE 90 U/L (46-116); ASPARTATE AMINO TRANSFERASE 33 U/L (15-37); BILIRUBIN,TOTAL 0.3 MG/DL (0.2-1.0)
--- NOTE | 2019-10-19 16:00 | NUR ---
ED Nurse Note: Pt was taken to CT via alejandro.
--- NOTE | 2019-10-19 16:15 | NUR ---
ED Nurse Note: Pt returned from CT, not in any distress.
--- NOTE | 2019-10-19 16:41 | Diagnostic Imaging Report ---
Indication: Chest pain Technique: One view of the chest Comparison: 03/18/2019 Findings: The lungs and pleural spaces are clear. The heart size is normal. The aorta is tortuous and calcified. Findings are unchanged Impression: No acute process
--- NOTE | 2019-10-19 16:49 | Diagnostic Imaging Report ---
Indication: Left upper quadrant pain and flank pain Technique: Spiral acquisitions obtained through the abdomen and pelvis. No oral contrast utilized, per emergency room physician request No IV contrast utilized, per emergency room physician request.. Multiplanar reconstructions were generated. Total dose length product 260 mGycm. CTDIvol(s) 4 mGy. Dose reduction achieved using automated exposure control Comparison: 11/05/2018 Findings: Numerous calcifications are seen in both kidneys. Suspect that these are predominantly arterial, although some may be calyceal or parenchymal. No ureteral calculi. No hydronephrosis nor hydroureter. Lack of IV contrast limits assessment of the renal parenchyma. No gross renal parenchymal mass or cyst demonstrated. Lack of IV contrast limits assessment of the other solid organs. The liver demonstrates a calcification in the right lobe. The Gallbladder, bile ducts, pancreas, adrenals are unremarkable. Innumerable small calcifications are seen scattered throughout the spleen. No retroperitoneal or mesenteric mass or adenopathy. No pelvic mass or adenopathy. Uterus and adnexal structures are unremarkable. Lack of enteric contrast limits assessment of the GI tract. The appendix is normal. There are a few colonic diverticula. No evidence of diverticulitis. No small bowel distention. No free or loculated intraperitoneal gas or fluid is evident. There is a moderate to large hiatal hernia, incompletely included. The included lung bases demonstrate some dependent atelectatic changes and some scarring. The bones demonstrate degenerative spondylosis changes. Impression: Limited assessment of the GI tract, due to lack of enteric contrast administration. No definite acute abnormality Evidence of old granulomatous disease within the liver and spleen. Extensive bilateral renal calcifications. Suspect that these are predominantly arterial and/or parenchymal, although some of them could also represent nonobstructive calyceal calculi. No evidence of obstructive uropathy Moderate to large hiatal hernia, also previously reported Colonic diverticulosis. No evidence of diverticulitis Incidental findings of dependent pulmonary atelectatic changes and scarring, degenerative spondylosis The CT scanner at [facility] is accredited by the [employer] and the scans are performed using protocols designed to limit radiation exposure to as low as reasonably achievable to attain images of sufficient resolution adequate for diagnostic evaluation.
[2019-10-19] MEDS ORDERED: NORCO 5-325 TA1 EAC1 ORAL (16:52)
--- NOTE | 2019-10-19 17:03 | NUR ---
ED Nurse Note: REPORT RECEIVED FROM HERNANDEZ CHAVEZ NO PENDING ORDERS AT THIS TIME. PT IS STABLE. AWAITING FOR TRANSPORT BACK TO [facility]
--- NOTE | 2019-10-19 17:05 | NUR ---
ED Nurse Note: MILAGROS LAGUNAS AWARE OF PT RETURN TO THEIR FACILITY
[2019-10-19 17:45] VITALS: BP 166/89
--- NOTE | 2019-10-19 19:03 | NUR ---
HAND-OFF: Report given to HERNANDEZ Lozada.
--- NOTE | 2019-10-19 19:10 | NUR ---
ED Nurse Note: Recieved report from am nurse to resume care, pt in bed awake and alert and oriented x 4, pt here for pain and waiting for transporttion back to SNF, pt has been discharged, has patent saline lock in right AC area, placed pt on monitoring for v/s, pt states pain level at 4/10, will continue to closely monitor while waiting for ambulance transport.
[2019-10-19 19:45] VITALS: BP 126/83
--- NOTE | 2019-10-19 20:00 | NUR ---
ED Nurse Note: Pt continues to rest quietly waiting for transportation, pt states pain level increasing back to 8/10 and asking for vilma meds, pt medicated as ordered and waiting for ambulance transport, pt remains on monitoring, v/s stable, no cp or sob.
--- NOTE | 2019-10-19 21:00 | NUR ---
ER DISCHARGE NOTE: Patient is cleared to be discharged per ERMD, pt is aox4, on room air, with stable vital signs. 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 pt took all belongings. nad noted during pt d/c back to [facility].
[2019-10-19 21:15] VITALS: BP 126/83
== END 2019-10-19 21:15 ==
LOC: EDBD 14:21 → EDUNIT# 14:21 → EMR 14:52
DX: R10.12 Left upper quadrant pain (principal); J44.9 Chronic obstructive pulmonary disease, unspecified; I10 Essential (primary) hypertension; G40.909 Epilepsy, unspecified, not intractable, without status epilepticus; K44.9 Diaphragmatic hernia without obstruction or gangrene; K57.90 Diverticulosis of intestine, part unspecified, without perforation or abscess without bleeding
CPT/HCPCS: 36415; 71045; 74176; 80053; 81003; 83605; 83690; 83735; 84484; 85007; 85025; 85610; 85730; 87086; 93005; 96374; 96375; 96376; 99284; J0360; J3010; U0002